=== PATIENT | female | born 1940 | race Caucasian/White ===

== ENCOUNTER 2016-10-29 12:26 | Emergency (ER) | payer OTHER ==
[~2016-10-29] VITALS: Ht 172.7 cm; Wt 98.7 kg
[~2016-10-29 12:26] MED LIST: ASPI-435 PO; DILT120C PO; LEVO100T PO; OXYC-57 PO
[2016-10-29 12:29] VITALS: TEMP 37.1; Ht 172.7 cm; Wt 98.7 kg
[2016-10-29] MEDS ORDERED: SODIUM CHLORIDE 0.9% 1000ML 1,000 ML IV SCH (12:52)
[2016-10-29] MEDS ORDERED: CARV12.52 PO (12:54)
[2016-10-29] MEDS ORDERED: CARV3.122 PO (12:54)
[2016-10-29 13:03] VITALS: O2SAT 96
[2016-10-29 13:04] LABS: BASO % 0.3 %; BASO ABS # 0.02 K/uL (0-0.2); COMPLETE YES; EOS % 3.5 %; IG% 0.3 %; LYMPH % 19.9 %; LYMPH ABS # 1.41 K/uL (1.2-3.4); MEAN CELL VOLUME 87.8 fL (80-100); MEAN CORPUSCULAR HEMOGLOBIN 29.6 pg (25-34); MEAN CORPUSCULAR HGB CONC 33.7 g/dl (32-36); MEAN PLATELET VOLUME 9.8 fL (7.4-10.4); PLATELET COUNT 224 K/uL (130-400); RED BLOOD COUNT 4.67 M/uL (4.2-5.4)
[2016-10-29 13:14] LABS: PARTIAL THROMBOPLASTIN RATIO 1.1; PROTHROMBIN TIME (PATIENT) 10.8 SECONDS (9.0-12.0)
--- NOTE | 2016-10-29 13:17 | EMERGENCY ROOM VISIT NOTE ---
History Report prepared by [place]: Jovita Renae Under the Supervision of: Dr. Enzo Farmer M.D. 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 Per sister, the patient was told by a nurse that she had 2 TIAs last week. She did not follow-up with her PCP after these TIAs. The patient has been doing well. Today she was feeling tired. She was out with her sister and her today and suddenly developed "garbled speech." Sister states that she was not making sense. And the patient states that she could not get her words out right. This did not last very long, but then the patient had some weakness of her right leg. Sister states that this appeared to be worse than usual, but the patient states that it was just her typical leg weakness. The patient denies headache, visual changes, trouble swallowing, chest pain, and shortness of breath. She takes a daily baby aspirin. She has a personal history of a stroke. The patient reports that last week her PCP made changes to her medications. 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 Pt denies visual changes and trouble swallowing. Review of Systems See HPI for pertinent positives & negatives. A total of 10 systems reviewed and were otherwise negative. Past Medical & Surgical Medical Problems: (1) Carotid artery disease (2) CVA (cerebral vascular accident) (3) HTN (hypertension) (4) Hypothyroidism (5) LIPOID METABOL DIS NOS (6) PAD (peripheral artery disease) (7) Positive Lyme disease serology (8) PURE HYPERCHOLESTEROLEM Surgical Problems: (1) S/P tonsillectomy Old medical records were reviewed. Nurse's notes were reviewed and I agree with. Family History FH: CAD (coronary artery disease) FATHER (3 NE's) MOTHER FH: Crohn's disease FATHER Social History Smoking Status: Unknown if Ever Smoked Alcohol Use: none Drug Use: none Marital Status: Housing Status: lives with significant other Occupation Status: retired Current/Historical Medications Scheduled Aspirin (Aspirin 81), 81 MG PO DAILY Carvedilol (Coreg), Unknown Dose PO BID Levothyroxine Sodium (Synthroid), 100 MCG PO DAILY Allergies Coded Allergies: Ceftriaxone (Verified Allergy, Intermediate, RASH, 10/29/16) Cephalexin (Unverified Allergy, Intermediate, RASH, 10/29/16) Physical Exam Vital Signs Date Time Temp Pulse Resp B/P Pulse Ox O2 Delivery O2 Flow Rate FiO2 10/29/16 15:17 82 18 192/132 96 10/29/16 14:30 80 22 186/127 97 Room Air 10/29/16 13:50 82 20 190/105 96 Room Air 10/29/16 13:03 96 Room Air 10/29/16 13:03 78 10/29/16 12:29 37.1 93 18 210/116 95 Room Air Physical Exam General: Well developed well nourished non ill appearing older female in no acute distress, breathing comfortably on room air. Normal speech HEENT: Normal cephalic atraumatic. Pupils are equal round and reactive to light. Sclerae anicteric. Extraocular movements are intact. Oropharynx is pink with moist mucous membranes. No swelling of the mouth lips or tongue. Neck: Supple with a midline trachea. No meningeal signs or stiffness, no JVD or bruits. No Stridor. Chest: Clear to auscultation bilaterally. No wheezes or rhonchi. No increased work of breathing. Heart: regular rate and rhythm. Abdomen: Soft nontender, nondistended without rebound guarding or rigidity. Extremities: No cyanosis clubbing or edema. No calf tenderness or assymetry Spine/Back. Non tender to palpation. No CVA tenderness Skin: Good turgor without rashes. Neurologic exam: Alert and oriented x3. Cranial nerves two through 12 are intact. Motor and sensation are intact and symmetrical throughout. GCS 15. Normal speech, no aphasia, normal finger to nose, no pronator drift. Medical Decision & Procedures ER Provider Diagnostic Interpretation: Radiology results as stated below per my review and radiologist interpretation: HEAD CT NONCONTRAST CT DOSE: 601.98 mGy.cm HISTORY: Stroke symptoms. TECHNIQUE: Multiaxial CT images of the head were performed without the use of intravenous contrast. Automated exposure control was utilized for this study. Comparison: Head CT 03/02/2013. Findings: Small retention cyst within the right maxillary sinus. Stable extra-axial calcification at the right high convexity. This likely represents a meningioma. The ventricles and sulci are within normal limits for age. There is no mass, hematoma, midline shift, or acute infarct. Impression: No acute intracranial abnormality. Electronically signed by: Ed Eastman M.D. 10/29/2016 1:38 PM Dictated Date/Time: 10/29/2016 1:35 PM Laboratory Results 10/29/16 12:45 Red Blood Count 4.67, Mean Corpuscular Volume 87.8, Mean Corpuscular Hemoglobin 29.6, Mean Corpuscular Hemoglobin Concent 33.7, Mean Platelet Volume 9.8, Neutrophils (%) (Auto) 69.0, Lymphocytes (%) (Auto) 19.9, Monocytes (%) (Auto) 7.0, Eosinophils (%) (Auto) 3.5, Basophils (%) (Auto) 0.3, Neutrophils # (Auto) 4.90, Lymphocytes # (Auto) 1.41, Monocytes # (Auto) 0.50, Eosinophils # (Auto) 0.25, Basophils # (Auto) 0.02 10/29/16 12:45 Test 10/29/16 12:45 10/29/16 12:58 10/29/16 12:59 White Blood Count 7.10 K/uL (4.8-10.8) Red Blood Count 4.67 M/uL (4.2-5.4) Hemoglobin 13.8 g/dL (12.0-16.0) Hematocrit 41.0 % (37-47) Mean Corpuscular Volume 87.8 fL (80-100) Mean Corpuscular Hemoglobin 29.6 pg (25-34) Mean Corpuscular Hemoglobin Concent 33.7 g/dl (32-36) Platelet Count 224 K/uL (130-400) Mean Platelet Volume 9.8 fL (7.4-10.4) Neutrophils (%) (Auto) 69.0 % Lymphocytes (%) (Auto) 19.9 % Monocytes (%) (Auto) 7.0 % Eosinophils (%) (Auto) 3.5 % Basophils (%) (Auto) 0.3 % Neutrophils # (Auto) 4.90 K/uL (1.4-6.5) Lymphocytes # (Auto) 1.41 K/uL (1.2-3.4) Monocytes # (Auto) 0.50 K/uL (0.11-0.59) Eosinophils # (Auto) 0.25 K/uL (0-0.5) Basophils # (Auto) 0.02 K/uL (0-0.2) RDW Standard Deviation 42.4 fL (36.4-46.3) RDW Coefficient of Variation 13.3 % (11.5-14.5) Immature Granulocyte % (Auto) 0.3 % Immature Granulocyte # (Auto) 0.02 K/uL (0.00-0.02) Prothrombin Time 10.8 SECONDS (9.0-12.0) Prothromb Time International Ratio 1.0 (0.9-1.1) Activated Partial Thromboplast Time 27.9 SECONDS (21.0-31.0) Partial Thromboplastin Ratio 1.1 Anion Gap 7.0 mmol/L (3-11) Est Creatinine Clear Calc Drug Dose 75.9 ml/min Estimated GFR () 88.5 Estimated GFR (Non- 76.3 BUN/Creatinine Ratio 17.0 (10-20) Calcium Level 8.4 mg/dl (8.5-10.1) Total Creatine Kinase 44 U/L (26-192) Creatine Kinase MB 2.9 ng/ml (0.5-3.6) Creatine Kinase MB Ratio 6.6 (0-3.0) Troponin I < 0.015 ng/ml (0-0.045) Bedside Glucose 134 mg/dl (70-90) Bedside Prothrombin Time INR 1.0 (0.9-1.1) Laboratory studies as stated above per my review. Medications Administered Medications (Trade) Dose Ordered Sig/Ashleigh Route Start Time Stop Time Status Last Admin Dose Admin Sodium Chloride (Nss 1000ml) 1,000 ml @ 50 mls/hr Q20H IV 10/29/16 12:52 10/29/16 15:33 DC 10/29/16 13:48 50 MLS/HR Aspirin (Aspirin Chew) 324 mg NOW STAT PO 10/29/16 14:08 10/29/16 14:09 DC 10/29/16 14:42 324 MG ECG Indication: weakness Rate (beats per minute): 84 Rhythm: normal sinus Findings: no acute ischemic change, other (LVH) Comparison ECG Date: 07/27/2015 Change: no significant change ED Course 1239: Past medical records reviewed. The patient was evaluated in room A11B, and a complete history and physical examination were performed. 1252: NSS 1000 ml @ 50 mls/hr IV 1348: I reassessed the patient at this time. I talked with her at length about her results, and she adamantly refused admission to the hospital. I explained to her that I was concerned that her symptoms of slurred speech could be a mini- stroke and I was concerned that if she went home she could have a significant stroke that could result in disability or . The patient still refuses to stay. I discussed the treatment plan with her family as well. 1408: Aspirin 324 mg PO 1501: The patient's blood pressure was 184/99. She is still refusing to stay and will be discharged home. Medical Decision Differential diagnoses includes TIA, CVA, electrolyte or metabolic abnormality, infection. Medication Reconciliation: I attest that I have personally reviewed the patient' s current medication list. Blood pressure Screening: Patient was found to have an elevated blood pressure and was referred to their primary doctor for recheck and further treatment. This patient comes in complaining of episode of aphasia she's had a couple in the last week. It is since resolved . she has no neurologic deficits at present and has a [place] Coma Score of 15. She's had no trauma her blood pressure was elevated initially she is very anxious. I observed and then it did start to come down and then went up and finally came down with 184/99 prior to discharge, she has not taken her 3:00 meds yet which should help alleviate this. She has no evidence suggest any hypertensive emergency at this point. A CAT scan of her head is unremarkable. EKG does not show any acute ischemic changes or significant arrhythmia. She has no acute electrode or metabolic abnormalities. She has nothing to suggest infection. She has remained stable and asymptomatic I talked to the patient at length with her sister and present. I told her that she needs to be admitted to the hospital as I'm concerned that she has had several TIAs (mini stroke) like symptoms and could have a stroke with permanent disability or . She adamantly declines to be admitted. She acknowledges my concern for her. Additionally, some of this could be related to her blood pressure as well and she may need further adjustment of her medications. Again she declines admission. I had our counseling case manager talked to her and try to get in with her primary doctor tomorrow for recheck. She can do some of the workup as an outpatient. I told her that this is not my first choice and I don't think the best choice but if she refuses admission this is the second choice. She is encouraged to return if she has recurrence of symptoms, numbness weakness, difficulty speaking, chest pain, shortness breath, any new problems concerns. She was happy with the plan and again refused admission. Impression Primary Impression: TIA (transient ischemic attack) Additional Impression: HTN (hypertension) Scribe Attestation The scribe's documentation has been prepared under my direction and personally reviewed by me in its entirety. I confirm that the note above accurately reflects all work, treatment, procedures, and medical decision making performed by me. Time Last Known Well 1200 Stroke t-PA Criteria Reviewed Does NOT meet criteria for t-PA Reason t-PA Not Given Treatment not indicated Strict Exclusion Criteria Complete resolution of symptoms (NI Departure Information Dispostion Home / Self-Care Referrals Shirley Perez D.O. (PCP) Forms HOME CARE DOCUMENTATION FORM, IMPORTANT VISIT INFORMATION Patient Instructions [facility] Additional Instructions Rest Return if: Worsening of symptoms, recurrence of speech problems, numbness or weakness, visual changes, headache, difficulty speaking or swallowing, fever, chest pain, shortness of breath Increase your aspirin to 325 mg once a day enteric coated(adult strength) Check and log your blood pressure frequently. You may need further adjustments in her medications. Problem Qualifiers Primary Impression: TIA (transient ischemic attack) Transient cerebral ischemia type: unspecified Qualified Codes: G45.9 - Transient cerebral ischemic attack, unspecified Additional Impression: HTN (hypertension) Hypertension type: unspecified secondary hypertension Qualified Codes: I15.9 - Secondary hypertension, unspecified
[2016-10-29 13:22] LABS: BLOOD UREA NITROGEN 13 mg/dl (7-18); CALCIUM 8.4 mg/dl (8.5-10.1); CARBON DIOXIDE 26 mmol/L (21-32); CHLORIDE 109 mmol/L (98-107); CREATININE 0.75 mg/dl (0.60-1.20); GLUCOSE 140 mg/dl (70-99); POTASSIUM 4.1 mmol/L (3.5-5.1); SODIUM 142 mmol/L (136-145)
[2016-10-29 13:27] LABS: CKMB/CK RATIO 6.6 (0-3.0)
--- NOTE | 2016-10-29 13:40 | DIAGNOSTIC IMAGING REPORT ---
HEAD CT NONCONTRAST CT DOSE: 601.98 mGy.cm HISTORY: Stroke symptoms. TECHNIQUE: Multiaxial CT images of the head were performed without the use of intravenous contrast. Automated exposure control was utilized for this study. Comparison: Head CT 03/02/2013. Findings: Small retention cyst within the right maxillary sinus. Stable extra-axial calcification at the right high convexity. This likely represents a meningioma. The ventricles and sulci are within normal limits for age. There is no mass, hematoma, midline shift, or acute infarct. Impression: No acute intracranial abnormality. Electronically signed by: Ed Eastman M.D. 10/29/2016 1:38 PM Dictated Date/Time: 10/29/2016 1:35 PM
[2016-10-29] MEDS ORDERED: ASPIRIN 81 MG CHEW PO STA (14:08)
[2016-10-29 15:17] VITALS: BP 192/132; PULSE 82; O2SAT 96
== END 2016-10-29 15:20 | disposition home or self-care (01) ==
LOC: C.EDB 12:29 → C.EDA 15:20
DX: G45.9 Transient cerebral ischemic attack, unspecified (principal); I15.9 Secondary hypertension, unspecified; Z79.82 Long term (current) use of aspirin; Z86.73 Personal history of transient ischemic attack (TIA), and cerebral infarction without residual deficits; E03.9 Hypothyroidism, unspecified; I73.9 Peripheral vascular disease, unspecified; E78.00 Pure hypercholesterolemia, unspecified; Z82.49 Family history of ischemic heart disease and other diseases of the circulatory system

== ENCOUNTER 2017-06-01 15:30 | Emergency (ER) | payer OTHER ==
[~2017-06-01] VITALS: Ht 172.7 cm; Wt 91.0 kg
[~2017-06-01 15:30] MED LIST changes: +CARV3.122 PO; -DILT120C PO; -OXYC-57 PO
[2017-06-01 15:32] VITALS: Ht 172.7 cm; Wt 91.0 kg
[2017-06-01] MEDS ORDERED: ONDANSETRON INJ 2 MG/ML 2 ML VIAL IV STA (15:58)
[2017-06-01] MEDS ORDERED: MoRPHine SULFATE 4 MG/ML 1 ML CARP\\VIAL IV PRN (16:00)
--- NOTE | 2017-06-01 16:04 | EMERGENCY ROOM VISIT NOTE ---
History Report prepared by [place]inna: Corwin Downing Under the Supervision of: Dr. Harry Brandon M.D. First contact with patient: 15:53 Chief Complaint: BACK PAIN Stated Complaint: BACK PAIN - RIGHT SIDE History of Present Illness The patient is a 76 year old female who presents to the Emergency Room with complaints of worsening right lower back pain that began yesterday. She rates her pain as an 8/10 in severity. The patient states that the pain is worsened with walking and relieved with rest. The patient states that she noticed the pain worsened today, which caused her to report to the ED. She reports that she took her arthritis medication, but denies any relief of symptoms. The patient states that she has an extensive history of back pain and had to wear a brace as a child. 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 The patient denies fall, injury, urinary symptoms, nausea, vomiting, fever, shortness of breath, cough, rash, and a history of kidney stones. Source of History: patient Onset: yesterday Position: back (lower) Symptom Intensity: 8/10 Timing: worsening Modifying Factors (Worsening): other (walking) Modifying Factors (Relieving): rest Associated Symptoms: No fevers, No cough, No SOB, No nausea, No vomiting, No urinary symptoms, No rash Review of Systems See HPI for pertinent positives & negatives. A total of 10 systems reviewed and were otherwise negative. Past Medical & Surgical Medical Problems: (1) Carotid artery disease (2) CVA (cerebral vascular accident) (3) HTN (hypertension) (4) Hypothyroidism (5) LIPOID METABOL DIS NOS (6) PAD (peripheral artery disease) (7) Positive Lyme disease serology (8) PURE HYPERCHOLESTEROLEM Surgical Problems: (1) S/P tonsillectomy Family History FH: CAD (coronary artery disease) FATHER (3 OH's) MOTHER FH: Crohn's disease FATHER Social History Smoking Status: Never Smoker Alcohol Use: none Drug Use: none Marital Status: Housing Status: lives with significant other Occupation Status: retired Current/Historical Medications Scheduled Aspirin (Aspirin), 325 MG PO DAILY Carvedilol (Coreg), 6.25 MG PO BID Levothyroxine Sodium (Synthroid), 100 MCG PO DAILY Allergies Coded Allergies: Ceftriaxone (Verified Allergy, Intermediate, RASH, 10/29/16) Cephalexin (Unverified Allergy, Intermediate, RASH, 10/29/16) Physical Exam Vital Signs Date Time Temp Pulse Resp B/P (MAP) Pulse Ox O2 Delivery O2 Flow Rate FiO2 06/01/17 20:13 36.8 81 20 163/109 98 06/01/17 19:28 163/109 06/01/17 18:47 172/101 06/01/17 17:45 81 20 220/114 98 Room Air 06/01/17 15:32 36.8 91 20 205/130 97 Room Air Physical Exam GENERAL: Patient is in mild acute distress secondary to pain. HEENT: No acute trauma, normocephalic atraumatic, mucous membranes moist, no nasal congestion, no scleral icterus. NECK: No stridor, no adenopathy, no meningismus, trachea is midline. LUNGS: Clear to auscultation bilaterally, no wheeze, no rhonchi, breath sounds equal. HEART: 2/6 systolic murmur, regular rate and rhythm.. ABDOMEN: Soft, nontender, bowel sounds positive, no hernias, no peritonitis. BACK: No focal areas of discomfort by palpation. No rash. EXTREMITIES: No cyanosis or edema, full range of motion of all the joints without pain or difficulty, no signs for acute trauma. NEUROLOGIC: Oriented x 3, no acute motor or sensory deficits, no focal weakness. SKIN: No rash, no jaundice, no diaphoresis. Medical Decision & Procedures ER Provider Diagnostic Interpretation: Radiology results as stated below per my review and radiologist interpretation: ABD/PELVIS WITHOUT FOR STONE CLINICAL HISTORY: 76 years-old Female presenting with EVALUATE FLANK PAIN/HEMATURIA. TECHNIQUE: Multidetector CT of the abdomen and pelvis was performed without the use of intravenous contrast. IV contrast: None. A dose lowering technique was used consistent with the principles of ALARA (as low as reasonably achievable). COMPARISON: None. CT DOSE (mGy.cm): The estimated cumulative dose is 1527.71 mGy.cm. FINDINGS: Joint Cutter Machine topogram: Unremarkable. Lung bases: Lungs and pleural spaces clear. Multichamber enlargement of the heart. Aortic valve and mitral annular calcification. No pericardial or pleural effusion. Liver: Normal morphology. Normal density. Biliary: No gross biliary ductal dilatation allowing for noncontrast technique. Gallbladder decompressed. Pancreas: Mild parenchymal atrophy. Spleen: Normal noncontrast appearance. Adrenal glands: Normal noncontrast appearance. Kidneys and ureters: Hypodensity in the left kidney, indeterminate but possibly cyst. No nephrolithiasis. No hydronephrosis. Normal ureters. Bladder: Incompletely evaluated secondary to underdistention. Pelvic organs: Normal noncontrast appearance. Bowel: Limited diverticulosis of the sigmoid colon. Mild stool burden. The appendix is normal. No bowel obstruction. Peritoneal cavity: No free fluid or intraperitoneal gas. Lymph nodes: Few prominent lymph nodes noted in the donnell hepatis, possibly reactive. No gross lymphadenopathy allowing for noncontrast technique. Vasculature: Atherosclerosis of the normal caliber abdominal aorta. Abdominal wall: Small fat-containing umbilical hernia. Musculoskeletal: Degenerative changes of the spine. IMPRESSION: 1. No nephrolithiasis or hydronephrosis. No acute intra-abdominal pathology within limitations of noncontrast technique. 2. Limited diverticulosis of the sigmoid colon. Electronically signed by: Renaldo Mckeon M.D. 06/01/2017 5:09 PM Dictated Date/Time: 06/01/2017 5:04 PM R PELVIS/UNILATERAL HIP 2-3VIEWS CLINICAL HISTORY: 76 years-old Female presenting with RT PELVIC AND HIP PAIN. TECHNIQUE: Single frontal view of the pelvis and frontal and frog-leg lateral views of the right hip were obtained. COMPARISON: CT performed earlier the same day. FINDINGS: Osteopenia. Bony pelvis intact. Pubic symphysis, sacroiliac joints, hip joints congruent. No femoral neck fracture. Specifically the right hip joint is unremarkable. Degenerative changes noted the lower lumbar spine. Atherosclerosis. IMPRESSION: No acute osseous injury of the pelvis or right hip. Electronically signed by: Renaldo Mckeon M.D. 06/01/2017 5:38 PM Dictated Date/Time: 06/01/2017 5:36 PM Laboratory Results 06/01/17 16:26 Red Blood Count 5.02, Mean Corpuscular Volume 89.2, Mean Corpuscular Hemoglobin 30.3, Mean Corpuscular Hemoglobin Concent 33.9, Mean Platelet Volume 10.0, Neutrophils (%) (Auto) 71.9, Lymphocytes (%) (Auto) 17.6, Monocytes (%) (Auto) 6.9, Eosinophils (%) (Auto) 3.0, Basophils (%) (Auto) 0.3, Neutrophils # (Auto) 4.82, Lymphocytes # (Auto) 1.18, Monocytes # (Auto) 0.46, Eosinophils # (Auto) 0.20, Basophils # (Auto) 0.02 06/01/17 16:26 Test 06/01/17 16:26 06/01/17 17:27 White Blood Count 6.70 K/uL (4.8-10.8) Red Blood Count 5.02 M/uL (4.2-5.4) Hemoglobin 15.2 g/dL (12.0-16.0) Hematocrit 44.8 % (37-47) Mean Corpuscular Volume 89.2 fL (80-100) Mean Corpuscular Hemoglobin 30.3 pg (25-34) Mean Corpuscular Hemoglobin Concent 33.9 g/dl (32-36) Platelet Count 227 K/uL (130-400) Mean Platelet Volume 10.0 fL (7.4-10.4) Neutrophils (%) (Auto) 71.9 % Lymphocytes (%) (Auto) 17.6 % Monocytes (%) (Auto) 6.9 % Eosinophils (%) (Auto) 3.0 % Basophils (%) (Auto) 0.3 % Neutrophils # (Auto) 4.82 K/uL (1.4-6.5) Lymphocytes # (Auto) 1.18 K/uL (1.2-3.4) Monocytes # (Auto) 0.46 K/uL (0.11-0.59) Eosinophils # (Auto) 0.20 K/uL (0-0.5) Basophils # (Auto) 0.02 K/uL (0-0.2) RDW Standard Deviation 45.6 fL (36.4-46.3) RDW Coefficient of Variation 14.0 % (11.5-14.5) Immature Granulocyte % (Auto) 0.3 % Immature Granulocyte # (Auto) 0.02 K/uL (0.00-0.02) Anion Gap 8.0 mmol/L (3-11) Est Creatinine Clear Calc Drug Dose 53.6 ml/min Estimated GFR () 61.0 Estimated GFR (Non- 52.6 BUN/Creatinine Ratio 30.9 (10-20) Calcium Level 8.7 mg/dl (8.5-10.1) Total Bilirubin 0.3 mg/dl (0.2-1) Aspartate Amino Transf (AST/SGOT) 15 U/L (15-37) Alanine Aminotransferase (ALT/SGPT) 26 U/L (12-78) Alkaline Phosphatase 110 U/L (45-117) Total Protein 7.8 gm/dl (6.4-8.2) Albumin 3.6 gm/dl (3.4-5.0) Globulin 4.2 gm/dl (2.5-4.0) Albumin/Globulin Ratio 0.9 (0.9-2) Lipase 158 U/L (73-393) Urine Color YELLOW Urine Appearance CLEAR (CLEAR) Urine pH 5.0 (4.5-7.5) Urine Specific [place] 1.034 (1.000-1.030) Urine Protein TRACE (NEG) Urine Glucose (UA) NEG (NEG) Urine Ketones NEG (NEG) Urine Occult Blood NEG (NEG) Urine Nitrite NEG (NEG) Urine Bilirubin NEG (NEG) Urine Urobilinogen NEG (NEG) Urine Leukocyte Esterase NEG (NEG) Urine WBC (Auto) 1-5 /hpf (0-5) Urine RBC (Auto) 0-4 /hpf (0-4) Urine Hyaline Casts (Auto) 1-5 /lpf (0-5) Urine Epithelial Cells (Auto) >30 /lpf (0-5) Urine Bacteria (Auto) NEG (NEG) Laboratory results reviewed by me. Medications Administered Medications (Trade) Dose Ordered Sig/Ashleihg Route Start Time Stop Time Status Last Admin Dose Admin Ondansetron HCl (Zofran Inj) 4 mg NOW STAT IV 06/01/17 15:58 06/01/17 16:07 DC 06/01/17 16:32 4 MG Labetalol HCl (Normodyne IV) 20 mg NOW STAT IV 06/01/17 17:50 06/01/17 17:51 DC 06/01/17 17:50 20 MG Ketorolac Tromethamine (Toradol Inj) 30 mg NOW STAT IV 06/01/17 17:50 06/01/17 17:51 DC 06/01/17 18:09 30 MG Carvedilol (Coreg Tab) 6.25 mg NOW STAT PO 06/01/17 19:30 06/01/17 19:31 DC 06/01/17 19:40 6.25 MG Oxycodone HCl (Roxicodone Immediate Rel 5MG Home Pack) 1 homepack UD ONCE PO 06/01/17 20:15 06/01/17 20:16 DC 06/01/17 20:06 1 HOMEPACK ED Course 155: The patient was evaluated in room B10. A complete history and physical exam was performed. 1557: Ordered Zofran Injection 4 mg IV. 1749: Ordered Toradol Injection 30 mg IV, Labetalol HCl 20 mg IV. 1814: I reevaluated the patient and he is resting comfortably. We are waiting for his blood pressure to come down. 1929: Ordered Coreg Tab 6.25 mg PO. 1957: Reevaluated the patient. Her blood pressure is slightly decreasing. She reports that she would like to go home. Discussed results and discharge instructions: She verbalized understanding and agreement. The patient is ready for discharge. 2014: Ordered Oxycodone HCl 1 homepack PO. Medical Decision The patient is a 76 year old female who presents to the Emergency Room with complaints of worsening right lower back pain that began yesterday. Differential diagnoses considered include Shingles, renal colic, UTI, nerve impingement, sciatica, hernia, triple A, arthritis, or fracture. There is no leukocytosis or worrisome anemia. No renal failure, no significant electrolyte abnormality or hepatitis. There is no pancreatitis. Urinalysis does not show infection or significant hematuria. Abdominal and pelvis CT shows no acute surgical finding. There was no hydronephrosis. No AAA. Pelvis and right hip film show no pelvic fracture or hip fracture. There was no significant arthritis. The patient presents with right flank and hip/pelvic pain. On exam, I did not see any rash although shingles is still a consideration. Her blood pressure was high here but she thought this might be from the pain or the worry of just being here. The patient was given IV Toradol for pain, she received IV labetalol and then oral Coreg for her blood pressure. She received IV Zofran. The patient was adamant that she felt she could leave. Her blood pressure had come down some but was still high. She did not want to stay. She states that she thinks the blood pressure is high from just being in the ER. The patient will keep a watch on her blood pressure. I have recommended warm compresses and massage for the soreness in the back and hip. The patient will see her doctor in the outpatient office. She will watch closely for any shingles rash. If worsening, she can return. At this point, the cause for the pain is unclear. Medication Reconcilliation Current Medication List: was personally reviewed by me Blood Pressure Screening Patient's blood pressure: Elevated blood pressure Blood pressure disposition: Referred to PCP Impression Primary Impression: Right flank pain Additional Impressions: Right hip pain HTN (hypertension) Scribe Attestation The scribe's documentation has been prepared under my direction and personally reviewed by me in its entirety. I confirm that the note above accurately reflects all work, treatment, procedures, and medical decision making performed by me. Departure Information Dispostion Home / Self-Care Referrals Shirley Perez D.O. (PCP) Forms HOME CARE DOCUMENTATION FORM, IMPORTANT VISIT INFORMATION Patient Instructions My [facility] Additional Instructions see nilson basilio saturday warm compresses to the sore area massage may be helpful tylenol for pain may use oxy ir 1 tab every 4 hours as needed for severe pain watch for a rash as we discussed return for fever or worsening symptoms keep a watch on your blood pressure--it was high here Problem Qualifiers
[2017-06-01] MEDS ORDERED: ASPECOTC PO (16:11)
[2017-06-01] MEDS ORDERED: CARV6.252 PO (16:18)
[2017-06-01 16:39] LABS: BASO % 0.3 %; BASO ABS # 0.02 K/uL (0-0.2); HEMATOCRIT 44.8 % (37-47); HEMOGLOBIN 15.2 g/dL (12.0-16.0); IG# 0.02 K/uL (0.00-0.02); LYMPH % 17.6 %; LYMPH ABS # 1.18 K/uL (1.2-3.4); MEAN CELL VOLUME 89.2 fL (80-100); MEAN CORPUSCULAR HEMOGLOBIN 30.3 pg (25-34); MEAN CORPUSCULAR HGB CONC 33.9 g/dl (32-36); MONO % 6.9 %; MONO ABS # 0.46 K/uL (0.11-0.59); NEUT % 71.9 %; NEUT ABS # 4.82 K/uL (1.4-6.5); PLATELET COUNT 227 K/uL (130-400); RED CELL DISTRIBUTION WIDTH SD 45.6 fL (36.4-46.3)
--- NOTE | 2017-06-01 17:10 | DIAGNOSTIC IMAGING REPORT ---
ABD/PELVIS WITHOUT FOR STONE CLINICAL HISTORY: 76 years-old Female presenting with EVALUATE FLANK PAIN/HEMATURIA. TECHNIQUE: Multidetector CT of the abdomen and pelvis was performed without the use of intravenous contrast. IV contrast: None. A dose lowering technique was used consistent with the principles of ALARA (as low as reasonably achievable). COMPARISON: None. CT DOSE (mGy.cm): The estimated cumulative dose is 1527.71 mGy.cm. FINDINGS: Die Finisher Forging topogram: Unremarkable. Lung bases: Lungs and pleural spaces clear. Multichamber enlargement of the heart. Aortic valve and mitral annular calcification. No pericardial or pleural effusion. Liver: Normal morphology. Normal density. Biliary: No gross biliary ductal dilatation allowing for noncontrast technique. Gallbladder decompressed. Pancreas: Mild parenchymal atrophy. Spleen: Normal noncontrast appearance. Adrenal glands: Normal noncontrast appearance. Kidneys and ureters: Hypodensity in the left kidney, indeterminate but possibly cyst. No nephrolithiasis. No hydronephrosis. Normal ureters. Bladder: Incompletely evaluated secondary to underdistention. Pelvic organs: Normal noncontrast appearance. Bowel: Limited diverticulosis of the sigmoid colon. Mild stool burden. The appendix is normal. No bowel obstruction. Peritoneal cavity: No free fluid or intraperitoneal gas. Lymph nodes: Few prominent lymph nodes noted in the donnell hepatis, possibly reactive. No gross lymphadenopathy allowing for noncontrast technique. Vasculature: Atherosclerosis of the normal caliber abdominal aorta. Abdominal wall: Small fat-containing umbilical hernia. Musculoskeletal: Degenerative changes of the spine. IMPRESSION: 1. No nephrolithiasis or hydronephrosis. No acute intra-abdominal pathology within limitations of noncontrast technique. 2. Limited diverticulosis of the sigmoid colon. Electronically signed by: Renaldo Mckeon M.D. 06/01/2017 5:09 PM Dictated Date/Time: 06/01/2017 5:04 PM
[2017-06-01 17:33] LABS: ALBUMIN 3.6 gm/dl (3.4-5.0); CALCIUM 8.7 mg/dl (8.5-10.1); CREATININE 1.02 mg/dl (0.60-1.20); POTASSIUM 3.8 mmol/L (3.5-5.1); TOTAL PROTEIN 7.8 gm/dl (6.4-8.2)
--- NOTE | 2017-06-01 17:39 | DIAGNOSTIC IMAGING REPORT ---
R PELVIS/UNILATERAL HIP 2-3VIEWS CLINICAL HISTORY: 76 years-old Female presenting with RT PELVIC AND HIP PAIN. TECHNIQUE: Single frontal view of the pelvis and frontal and frog-leg lateral views of the right hip were obtained. COMPARISON: CT performed earlier the same day. FINDINGS: Osteopenia. Bony pelvis intact. Pubic symphysis, sacroiliac joints, hip joints congruent. No femoral neck fracture. Specifically the right hip joint is unremarkable. Degenerative changes noted the lower lumbar spine. Atherosclerosis. IMPRESSION: No acute osseous injury of the pelvis or right hip. Electronically signed by: Renaldo Mckeon M.D. 06/01/2017 5:38 PM Dictated Date/Time: 06/01/2017 5:36 PM
[2017-06-01] MEDS ORDERED: LABETALOL HCL IV 5 MG/ML 20ML IV STA (17:50)
[2017-06-01] MEDS ORDERED: KETOROLAC TROMETHAMINE 30 MG/ML VIAL IV STA (17:50)
[2017-06-01] MEDS ORDERED: CARVEDILOL 6.25 MG TAB PO STA (19:30)
[2017-06-01 20:13] VITALS: BP 163/109; PULSE 81; TEMP 36.8; O2SAT 98
[2017-06-01] MEDS ORDERED: OXYCODONE IR HOME PACK PO ONE (20:15)
== END 2017-06-01 20:14 | disposition home or self-care (01) ==
LOC: C.EDB 15:31
DX: R10.9 Unspecified abdominal pain (principal); M25.551 Pain in right hip; I10 Essential (primary) hypertension; I25.10 Atherosclerotic heart disease of native coronary artery without angina pectoris; I63.9 Cerebral infarction, unspecified; E03.9 Hypothyroidism, unspecified; I73.9 Peripheral vascular disease, unspecified; E78.00 Pure hypercholesterolemia, unspecified; Z82.49 Family history of ischemic heart disease and other diseases of the circulatory system; Z79.82 Long term (current) use of aspirin

== ENCOUNTER → 2017-07-13 | Outpatient (CLI) | payer OTHER ==
[~2017-07-13] MED LIST changes: -ASPI-435 PO; +ASPI325T45 PO; -CARV3.122 PO; +CARV6.252 PO
--- NOTE | 2017-07-13 11:44 | DIAGNOSTIC IMAGING REPORT ---
VENOUS DOPP LOWER EXT UNILAT CLINICAL HISTORY: 77 years-old Female presenting with LEFT LEG SWELLING. TECHNIQUE: Real-time grayscale and color and spectral Doppler ultrasound imaging of the veins of the left lower extremity was performed. Compression and augmentation were also utilized. COMPARISON: 08/26/2014. FINDINGS: Left: Common femoral vein: Patent. Greater saphenous vein: Patent. Deep femoral vein: Patent. Femoral vein: Patent. Popliteal vein: Patent. Calf veins: Patent. Other: None. IMPRESSION: No evidence of deep venous thrombosis. Electronically signed by: Renaldo Mckeon M.D. 07/13/2017 11:43 AM Dictated Date/Time: 07/13/2017 11:42 AM
== END | disposition home or self-care (01) ==
LOC: C.ULTR 11:16
PROVIDERS: ATTEND Internal Medicine
DX: M79.89 Other specified soft tissue disorders (principal)

== ENCOUNTER 2019-12-17 11:45 | Inpatient (IN) ==
--- NOTE | 2019-12-17 12:14 | Emergency Department Note ---
Impression & Plan Hypertensive emergency, Transient cerebral ischemia, High serum chloride ED Provider Note NAME: KELLY CLINE AGE: 79 SEX: F : 1940 ARRIVES VIA: Walk-In INFORMANT: Patient ED PROVIDER(S): Alban Chirinos DO CHIEF COMPLAINT: Slurred speech, weakness HPI: Patient is an 79-year-old female who presents the ER for slurred speech. She notes that she went to bed last night around 930. She has been having this off and on for the past 3 to 4 days. Generally worse in the afternoon. She notes it normally comes and goes. Started last night and continued through when she went to bed and when she woke up this morning she notes it was worse. She was having trouble getting words out. She admits to feeling foggy as well. No headache change in vision chest pain shortness of breath nausea vomiting or diarrhea. She notes she has trouble getting up and down trouble walking. Her right lower extremity does not feel right either from when she got up this morning. She admits to a previous stroke before x1. ROS: See above HPI for pertinent positives & negatives. A total of 10 systems reviewed and were otherwise negative. PAST MEDICAL HISTORY:See Below PAST SURGICAL HISTORY:See Below FAMILY HISTORY:See Below SOCIAL HISTORY:See Below HOME MEDICATIONS:See Below ALLERGIES:See Below VITALS:See Below PHYSICAL EXAMINATION: GENERAL: Sitting up in bed, alert, well appearing, well nourished, no distress, non-toxic EYE EXAM: normal conjunctiva. PERRL and EOM's intact. OROPHARYNX: no exudate, no erythema, lips, buccal mucosa, and tongue normal and mucous membranes are moist NECK: supple, no nuchal rigidity, no adenopathy, non-tender LUNGS: Clear to auscultation. Normal chest wall mechanics HEART: no murmurs, S1 normal and S2 normal ABDOMEN: abdomen soft, non-tender, normo-active bowel sounds, no masses, no rebound or guarding. BACK: Back is symmetrical on inspection and there is no deformity, no midline tenderness, no CVA tenderness. SKIN: no rashes and no bruising UPPER EXTREMITIES: upper extremities are grossly normal. LOWER EXTREMITIES: No pitting edema. NEURO EXAM: Normal sensorium, cranial nerves II-XII intact, normal speech, no weakness of arms, no weakness of legs. No drift. Finger to nose intact. Gross sensation intact. MEDICAL DECISION MAKING: Patient is an 79-year-old female with a past medical history of TIA the presents the ER for 3 days worth of off and on slurred speech. She went to bed last night with slurred speech and when she woke up it was there and got worse. She had trouble moving her right lower extremity. Upon presentation she is found to be significantly hypertensive with systolic blood pressures in the 200s. IV was established blood work is obtained. Labs show no significant leukocytosis or anemia. INR was unremarkable. BMP with a slightly elevated chloride. Glucose was slightly elevated. LFTs bilirubin was negative. Troponin was negative. CT angios of the head and neck show no focal occlusion or embolic disease. Patient was significantly improved on my initial exam. Patient was given IV fluids. She was given IV hydralazine after discussion with neurology. Attempted to bring down the blood pressures as I question if this was hypertensive emergency versus TIA. Patient was updated initially want to go home but was eventually agreeable to staying in the hospital. Stroke alert was not called has symptoms have been present since last night before going to bed. Triage Nursing notes reviewed. Prior medical records reviewed Vital Signs: reviewed and remarkable for hypertensive Differential diagnosis: Differential Diagnosis includes but is not limited to ischemic Stroke, hemorrhagic stroke, bells palsy, mass, neoplasm, migraine headache, seizure, subarachnoid hemorrhage, TIA, and transient global amnesia. ER treatment provided: See below Diagnostics interpreted by me: ECG: Sinus rhythm rate of 74 Left axis DWI in the high lateral leads No PVCs LVH by voltage criteria Cardiac Monitoring: An order was placed for continuous cardiac monitoring. The monitor shows a rate of 75 with sinus rhythm. Laboratory studies: As stated above and show below. Imaging studies: See below Consultation(s): Discussed with the hospitalist for further evaluation. ED COURSE: Procedures: none Critical Care: I have personally spent 31 minutes of critical care time in the direct management of this patient. This includes bedside care, interpretation of diagnostic studies, and testing, discussion with consultants, patient, and family members, and other required patient management activities. This 31 minutes is in excess of all separately billable procedures. Past Med/Surg History Medical History (Updated 12/17/19 @ 18:21 by Alban Chirinos DO) Carotid artery disease (Chronic) CVA (cerebral vascular accident) (Chronic) Diabetes (Chronic) Hyperlipidemia (Chronic) Hypertension (Chronic) Hypothyroidism (Chronic) Left ventricular hypertrophy (Chronic) Peripheral vascular disease (Chronic) Surgical History (Updated 12/17/19 @ 15:11 by Fatimah Reveles PA-C) History of tonsillectomy Family History (Updated 12/17/19 @ 15:11 by Fatimah Reveles PA-C) Father Myocardial infarction Mother Colorectal cancer Social History (Updated 12/17/19 @ 15:12 by Fatimah Reveles PA-C) Preferred Language: Macedonian Communication Ability: Effective [employer] Required: No Beliefs That Will Affect Care: None Current Living Situation: Spouse current occupational status: retired Other Information That Helps Us Care for You: No Feels Safe at Home: Yes Safety Concerns: Feels Safe At This Time Smoking Status: Never smoker Hx Alcohol Use: No Hx Substance Use: No Allergies Allergies Allergy/AdvReac Type Severity Reaction Status Date / Time ceftriaxone Allergy Intermediate RASH Verified 12/17/19 12:40 cephalexin Allergy Intermediate RASH Unverified 12/17/19 12:40 Sulfa (Sulfonamide Allergy Unknown Unknown Unverified 12/17/19 12:40 Antibiotics) Home Meds Home Medications Medication Instructions Recorded Confirmed aspirin 325 mg tablet 325 mg PO QDL 03/10/18 12/17/19 carvedilol 6.25 mg tablet 6.25 mg PO QAM 03/10/18 12/17/19 metformin 500 mg tablet 500 mg PO QDL tab 03/10/18 12/17/19 levothyroxine 137 mcg PO DAILY 12/17/19 12/17/19 Results & Data (ED) Vital Signs Vital Signs - 24 hr 12/17/19 11:48 12/17/19 12:04 12/17/19 12:10 Temperature 36.4 C L Temperature Source Oral Pulse Rate 71 69 Pulse Rate from SpO2 Sensor 70 Pulse Rhythm Regular Pulse Strength Normal Respiratory Rate 20 21 Respiratory Effort / Characteristics Non-Labored Spontaneous Respiratory Depth Normal Respiratory Pattern Regular Blood Pressure 225/106 H 244/124 H Blood Pressure Mean 145 163 Blood Pressure Position Sitting Pulse Oximetry 97 98 97 Oxygen Delivery Method Room Air Room Air Room Air Sepsis Recent Fever Within 48 Hours No Sepsis New/Unexplained Change in Mental Status No Sepsis Action Taken by Nursing No Action Required 12/17/19 12:34 12/17/19 12:46 12/17/19 13:01 Temperature Temperature Source Pulse Rate 65 72 71 Pulse Rate from SpO2 Sensor 69 73 70 Pulse Rhythm Pulse Strength Respiratory Rate 19 19 18 Respiratory Effort / Characteristics Respiratory Depth Respiratory Pattern Blood Pressure 228/110 H 227/94 H 229/80 H Blood Pressure Mean 148 147 133 Blood Pressure Position Pulse Oximetry 97 96 96 Oxygen Delivery Method Room Air Room Air Room Air Sepsis Recent Fever Within 48 Hours Sepsis New/Unexplained Change in Mental Status Sepsis Action Taken by Nursing 12/17/19 13:16 12/17/19 13:30 12/17/19 13:46 Temperature Temperature Source Pulse Rate 88 72 80 Pulse Rate from SpO2 Sensor 81 74 78 Pulse Rhythm Pulse Strength Respiratory Rate 21 18 18 Respiratory Effort / Characteristics Respiratory Depth Respiratory Pattern Blood Pressure 250/99 H Blood Pressure Mean 130 Blood Pressure Position Pulse Oximetry 96 97 98 Oxygen Delivery Method Room Air Room Air Room Air Sepsis Recent Fever Within 48 Hours Sepsis New/Unexplained Change in Mental Status Sepsis Action Taken by Nursing 12/17/19 14:01 Temperature Temperature Source Pulse Rate 72 Pulse Rate from SpO2 Sensor 71 Pulse Rhythm Pulse Strength Respiratory Rate 24 Respiratory Effort / Characteristics Respiratory Depth Respiratory Pattern Blood Pressure 246/111 H Blood Pressure Mean 153 Blood Pressure Position Pulse Oximetry 97 Oxygen Delivery Method Room Air Sepsis Recent Fever Within 48 Hours Sepsis New/Unexplained Change in Mental Status Sepsis Action Taken by Nursing Laboratory Data Result diagrams: 12/17/19 12:02 12/17/19 12:02 Lab Results 12/17/19 12/17/19 12/17/19 Range/Units 12:00 12:02 12:02 WBC 8.33 (4.8-10.8) K/uL RBC 5.47 H (4.2-5.4) M/uL Hgb 16.2 H (12.0-16.0) g/dL Hct 47.2 H (37-47) % MCV 86.3 (80-100) fL MCH 29.6 (25-34) pg MCHC 34.3 (32-36) g/dL RDW Std Deviation 42.0 (36.4-46.3) fL RDW Coeff of Eliza 13.2 (11.5-14.5) % Plt Count 245 (130-400) K/uL MPV 10.4 (7.4-10.4) fL Immature Gran % (Auto) 0.2 % Neut % (Auto) 71.4 % Lymph % (Auto) 17.9 % Cedar % (Auto) 8.0 % Eos % (Auto) 2.4 % Baso % (Auto) 0.1 % Neut # (Auto) 5.94 (1.4-6.5) K/uL Lymph # (Auto) 1.49 (1.2-3.4) K/uL Cedar # (Auto) 0.67 H (0.11-0.59) K/uL Eos # (Auto) 0.20 (0-0.5) K/uL Baso # (Auto) 0.01 (0-0.2) K/uL Immature Gran # (Auto) 0.02 (0.00-0.02) K/uL PT (9.0-12.0) Seconds INR (0.9-1.1) APTT (21.0-31.0) Seconds PTT Ratio Sodium (136-145) mmol/L Potassium (3.5-5.1) mmol/L Chloride (98-107) mmol/L Carbon Dioxide (21-32) mmol/L Anion Gap (3-11) BUN (7-18) mg/dl Creatinine (0.6-1.2) mg/dl Est Cr Clr Drug Dosing ml/min Est GFR ( Amer) Est GFR (Non-Af Amer) BUN/Creatinine Ratio (10-20) Glucose (70-99) mg/dl POC Glucose 108 H (70-99) mg/dl Calcium (8.5-10.1) mg/dl Magnesium (1.8-2.4) mg/dl Total Bilirubin (0.2-1) mg/dl AST (15-37) U/L ALT (12-78) U/L Alkaline Phosphatase (45-117) U/L Troponin I (0-0.045) ng/ml Total Protein (6.4-8.2) gm/dl Albumin (3.4-5.0) gm/dl Globulin (2.5-4.0) gm/dl Albumin/Globulin Ratio (0.9-2) Blood Type A Positive Antibody Screen NEGATIVE 12/17/19 12/17/19 Range/Units 12:02 12:02 WBC (4.8-10.8) K/uL RBC (4.2-5.4) M/uL Hgb (12.0-16.0) g/dL Hct (37-47) % MCV (80-100) fL MCH (25-34) pg MCHC (32-36) g/dL RDW Std Deviation (36.4-46.3) fL RDW Coeff of Eliza (11.5-14.5) % Plt Count (130-400) K/uL MPV (7.4-10.4) fL Immature Gran % (Auto) % Neut % (Auto) % Lymph % (Auto) % Cedar % (Auto) % Eos % (Auto) % Baso % (Auto) % Neut # (Auto) (1.4-6.5) K/uL Lymph # (Auto) (1.2-3.4) K/uL Cedar # (Auto) (0.11-0.59) K/uL Eos # (Auto) (0-0.5) K/uL Baso # (Auto) (0-0.2) K/uL Immature Gran # (Auto) (0.00-0.02) K/uL PT 11.0 (9.0-12.0) Seconds INR 1.0 (0.9-1.1) APTT 29.1 (21.0-31.0) Seconds PTT Ratio 1.0 Sodium 140 (136-145) mmol/L Potassium 4.2 (3.5-5.1) mmol/L Chloride 110 H (98-107) mmol/L Carbon Dioxide 24 (21-32) mmol/L Anion Gap 6.0 (3-11) BUN 21 H (7-18) mg/dl Creatinine 1.08 (0.6-1.2) mg/dl Est Cr Clr Drug Dosing 48.8 ml/min Est GFR ( Amer) 55.8 Est GFR (Non-Af Amer) 48.1 BUN/Creatinine Ratio 19.4 (10-20) Glucose 115 H (70-99) mg/dl POC Glucose (70-99) mg/dl Calcium 8.9 (8.5-10.1) mg/dl Magnesium 2.4 (1.8-2.4) mg/dl Total Bilirubin 0.4 (0.2-1) mg/dl AST 14 L (15-37) U/L ALT 19 (12-78) U/L Alkaline Phosphatase 121 H (45-117) U/L Troponin I < 0.015 (0-0.045) ng/ml Total Protein 7.8 (6.4-8.2) gm/dl Albumin 3.5 (3.4-5.0) gm/dl Globulin 4.3 H (2.5-4.0) gm/dl Albumin/Globulin Ratio 0.8 L (0.9-2) Blood Type Antibody Screen Administered Medications Aspirin (Aspirin) 300 mg SD DAILY MEHRAN Stop: 01/16/20 14:59 Last Admin: 12/17/19 15:28 Dose: 300 mg Documented by: [id number] Insulin Aspart (Novolog Flexpen) 0 units SC ACHS MEHRAN Stop: 01/16/20 16:30 Last Admin: 12/17/19 17:20 Dose: Not Given Documented by: [id number] Cosigned by: [id number] Labetalol HCl (Normodyne) 10 mg IV Q6H PRN PRN Reason: hypertension Stop: 01/16/20 16:30 Last Admin: 12/17/19 18:04 Dose: 10 mg Documented by: [id number] Cosigned by: [id number] Discontinued Medications Hydralazine HCl (Hydralazine Hcl) 10 mg IV NOW STA Stop: 12/17/19 13:49 Last Admin: 12/17/19 13:57 Dose: 10 mg Documented by: [id number] Hydralazine HCl (Hydralazine Hcl) 10 mg IV NOW STA Stop: 12/17/19 14:10 Last Admin: 12/17/19 14:37 Dose: Not Given Documented by: [id number] Ioversol (Optiray 320 125ml) 119 ml IV ONCE PRN PRN Reason: Interaction Checking Stop: 12/21/19 12:23 Last Admin: 12/17/19 12:24 Dose: 119 ml Documented by: [id number] Labetalol HCl (Normodyne) 10 mg IV NOW STA Stop: 12/17/19 14:54 Last Admin: 12/17/19 17:25 Dose: Not Given Documented by: [id number] Labetalol HCl (Normodyne) 20 mg IV NOW STA Stop: 12/17/19 14:57 Last Admin: 12/17/19 15:58 Dose: 20 mg Documented by: [id number] Cosigned by: [id number] Discharge Plan Visit Data *Final* Discharge Date/Time: 12/17/19 15:10 Chief Complaint: Stroke/CVA Symptoms Stated Complaint: SLURRED SPEECH, DIFFICULTY SPEAKING ED Provider: Alban Chirinos Discharge Problem: Hypertensive emergency, Transient cerebral ischemia, High serum chloride Patient Disposition: Admitted As Inpatient Discharge Instructions Interventions: ED Discharge Assessment Last Done: 12/17/19 15:10 Discharge Problem: Transient cerebral ischemia Qualifiers: Transient cerebral ischemia type: unspecified Qualified Code(s): G45.9 - Transient cerebral ischemic attack, unspecified
[2019-12-17 12:16] LABS: Basophils # (auto) 0.01 K/uL (0-0.2); Basophils % (auto) 0.1 %; Eosinophils % (auto) 2.4 %; Hematocrit (blood only) 47.2 % (37-47); Hemoglobin 16.2 g/dL (12.0-16.0); Immature Granulocytes # (auto) 0.02 K/uL (0.00-0.02); Immature Granulocytes % (auto) 0.2 %; Lymphocytes # (auto) 1.49 K/uL (1.2-3.4); Lymphocytes % (auto) 17.9 %; Mean Corpuscular Hemoglobin 29.6 pg (25-34); Mean Corpuscular Hgb Conc 34.3 g/dL (32-36); Mean Corpuscular Volume 86.3 fL (80-100); Mean Platelet Volume 10.4 fL (7.4-10.4); Monocytes # (auto) 0.67 K/uL (0.11-0.59); Neutrophils # (auto) 5.94 K/uL (1.4-6.5); Neutrophils % (auto) 71.4 %; Platelet Count 245 K/uL (130-400); RDW Coefficient of Variation 13.2 % (11.5-14.5); Red Blood Count 5.47 M/uL (4.2-5.4); White Blood Count 8.33 K/uL (4.8-10.8)
[2019-12-17] MEDS ORDERED: OPTIRAY 320 125ml IV PRN (12:24)
[2019-12-17 12:27] LABS: Partial Thromboplastin Time 29.1 Seconds (21.0-31.0)
[2019-12-17 12:33] LABS: Alanine Aminotransferase 19 U/L (12-78); Albumin Level 3.5 gm/dl (3.4-5.0); Aspartate Aminotransferase 14 U/L (15-37); BUN Creatinine Ratio 19.4 (10-20); Blood Urea Nitrogen 21 mg/dl (7-18); Calcium 8.9 mg/dl (8.5-10.1); Carbon Dioxide 24 mmol/L (21-32); Chloride 110 mmol/L (98-107); Creatinine Clr Calc Pharmacy 48.8 ml/min; Est GFR (African American) 55.8; Est GFR (Non-African American) 48.1; Glucose 115 mg/dl (70-99); Magnesium 2.4 mg/dl (1.8-2.4); Potassium 4.2 mmol/L (3.5-5.1); Sodium 140 mmol/L (136-145)
[2019-12-17 12:38] LABS: Albumin Globulin Ratio 0.8 (0.9-2); Alkaline Phosphatase 121 U/L (45-117); Bilirubin,Total 0.4 mg/dl (0.2-1); Globulin 4.3 gm/dl (2.5-4.0); Total Protein 7.8 gm/dl (6.4-8.2); Troponin I < 0.015 ng/ml (0-0.045)
--- NOTE | 2019-12-17 12:52 | CT Scan Report ---
CT angio neck with con HISTORY: Mental status change Stroke evaluation TECHNIQUE: Multiaxial CT angiography of the neck was performed IV contrast: 120 cc nonionic All noemy urements were calculated based on NASCET criteria. Maximum intensity projection images were also obt ained. A dose lowering technique was utilized adhering to the principles of ALARA. COMPARISON STUDY: None. FINDINGS: The aortic arch and proximal great vessels are widely patent. There is no significant sten osis, occlusion, or dissection identified within the bilateral common carotid, internal carotid, or v ertebral arteries. There is 30% narrowing of the carotid bifurcations and proximal internal carotid a rteries. There is 50% narrowing distal left vertebral artery. There is tortuosity and ectasia of the vertebral vasculature. IMPRESSION: 1. Moderate plaque formation throughout the carotid bifurcations. 2. 30% narrowing of the carotid bifurcations and proximal internal carotid arteries bilaterally. 3. Multifocal 50% narrowing of the left vertebral artery as described. ACT 112: Negative or not required by law. The above report was generated using voice recognition software. It may contain grammatical, syntax or spelling errors. Electronically signed by: Guille Leone M.D. 12/17/2019 12:51 PM
--- NOTE | 2019-12-17 12:53 | CT Scan Report ---
HEAD CT NONCONTRAST CT DOSE: HISTORY: Slurred speech. Weakness. Stroke evaluation TECHNIQUE: Multiaxial CT images of the head were performed without the use of intravenous contrast. A utomated exposure control was utilized for this study. A dose lowering technique was utilized adheri ng to the principles of ALARA. Comparison: Head CT 10/29/2016. Findings: Small retention cyst within the right maxillary sinus. A 1 cm slightly dense nodule within the right sphenoid sinus. This remains stable may represent a small polyp or calcified retention cyst . The calvarium and skull base are intact. The ventricles and sulci demonstrate mild age-related invo lutional changes. Mild periventricular white matter hypodensity is nonspecific but favor microvascula r ischemic change. This is also unchanged.. There is no hematoma, midline shift, or acute infarct. St able extra-axial calcification at the right high convexity which likely represents a meningioma. Old punctate lacunar infarcts within the right basal ganglia. Impression: No significant change compared to the prior study. No acute intracranial abnormality. ACT 112: Negative or not required by law. Electronically signed by: Ed Eastman M.D. 12/17/2019 12:51 PM
--- NOTE | 2019-12-17 13:00 | CT Scan Report ---
CTA ANGIOGRAPHY OF THE HEAD CLINICAL HISTORY: Stroke evaluation. Slurred speech. Weakness. COMPARISON STUDY: MRA of the head March 02, 2013. TECHNIQUE: Helical axial images of the head were obtained following uneventful intravenous administr ation of 119 cc of Optiray 320. Sagittal and coronal reconstructions were viewed as well as maximal i ntensity projections on an independent 3-D workstation. Automated exposure control was utilized for the study. A dose lowering technique was utilized adhering to the principles of ALARA. CT DOSE: 1183.23 mGy.cm FINDINGS: No acute intracranial hemorrhage, midline shift or mass effect is present. The ventricular system is stable. Basilar cisterns are patent. There are no extra axial collections. Partially calcif ic 1.6 cm extra-axial lesion overlying the right frontal lobe is unchanged. This represents a meningi rhina. Note is made of a probable tiny 2 mm right ICA terminus aneurysm. No additional aneurysms are id entified. Severe multifocal stenoses are identified within the intracranial vessels. Specifically, no te is made of severe stenosis of the bilateral middle cerebral arteries. The right A1 segment is dimi nutive. Severe multifocal stenoses of the left posterior cerebral artery as well as the intracranial portion of the left vertebral artery are noted. There is also stenosis of the basilar artery. No intr aluminal thrombus is identified. IMPRESSION: 1. Severe multifocal stenoses within the intracranial vessels, as described above. No intraluminal th rombus identified. 2. 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 ACT 112: Negative or not required by law. Electronically signed by: Rob Galicia M.D. 12/17/2019 12:58 PM
--- NOTE | 2019-12-17 13:44 | XRay Report ---
XR chest 1V portable HISTORY: Weakness. Slurred speech. Stroke. COMPARISON: Chest 07/26/2015. FINDINGS: Cardiac silhouette is mildly enlarged. The lungs are clear. No pleural effusions. No pneumo thorax. IMPRESSION: Mild cardiomegaly. ACT 112: Negative or not required by law. Electronically signed by: Ed Eastman M.D. 12/17/2019 1:43 PM
[2019-12-17] MEDS ORDERED: HydrALAZINE HCL 20 MG/ML VIAL IV STA ×2 (13:48→14:09)
[2019-12-17] MEDS ORDERED: LABETALOL HCL IV 5 MG/ML 20ML IV STA ×2 (14:53→14:56)
[2019-12-17] MEDS ORDERED: ASPIRIN 300 MG SUPP PR SCH (15:00)
--- NOTE | 2019-12-17 15:07 | History & Physical Report ---
Date of Service December 17, 2019 Assessment & Plan (1) CVA (cerebral vascular accident): (2) Hypertensive emergency: This is an 79-year-old female who has significant past medical history of cerebrovascular disease, T2DM, HTN, HLD, PAD, carotid artery disease, hypothyroidism who presents to ED secondary to strokelike symptoms x3 to 4 days. In ED patient was significantly hypertensive with blood pressure 250/114. In ED she received hydralazine 10 mg IV with minimal improvement. 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 Severe stenosis noted in the bilateral MCAs. Head CT: No significant change compared to the prior study. No acute intracranial abnormality. Pt dysarthria has resolved, mild LLE weakness. Admit to PCU Labetalol 20mg IV x 1 stat and q6h prn SBP > 220 DBP > 110 NPO until seen and eval by speech pt does not meet criteria for TPA wishes for medical management only Pt refusing MRI, will repeat CT w/o contrast in a.m. DNR/DNI PT/ST/OT 300mg ASA IA when cleared by speech reduce ASA to 81mg daily and add plavix 75mg, atorvastatin 40mg neurology consulted echocardiogram ordered (last 07/23 revealed EF 65%, mildly enlarged left atrium, mild AV stenosis, severely enlarged concentric left ventricle concerns for hypertrophic cardiomyopathy -has not been evaluated by cards as outpatient) fasting lipid panel/a1c in a.m. (3) Cerebral vascular disease: CTA head revealed Severe multifocal stenoses within the intracranial vessels, with severe stenosis to the b/l MCAs pt with overall poor detention prognosis given severity of stenosis with likely recurrent stroke like sx wishes for non aggressive measures, opts for med management ASA, add plavix and atorvastatin when passes swallow eval neuro consulted (4) Diabetes: last a1c 7.5 06/27/19 hold metformin repeat a1c in a.m. novolog insulin sliding scale per protocol (5) HTN (hypertension): on coreg as outpt treat of htn emergency as above permissive HTN (6) Carotid artery disease: CTA neck: 1. Moderate plaque formation throughout the carotid bifurcations. 2. 30% narrowing of the carotid bifurcations and proximal internal carotid arteries bilaterally. 3. Multifocal 50% narrowing of the left vertebral artery as described. Pt on ASA, adding plavix previously has been on statin in past - she is unsure why she stopped obtain fasting lipid panel start atorvastatin 40mg after cleared by speech therapy (7) Hypothyroidism: continue levothyroxine (8) DVT prophylaxis: SCD/TEDs for now Disposition: admit to PCU Follow up: PCP Dr. Perez upon discharge Pt was seen and examined in collaboration with Dr. Langston, please see addendum History of Present Illness Chief Complaint: Stroke like sx x 3-4 days. Primary Care Provider: Shirley Perez DO This is an 79-year-old female who has significant past medical history of cerebrovascular disease, T2DM, HTN, HLD, PAD, carotid artery disease, hypothyroidism who presents to ED secondary to strokelike symptoms x3 to 4 days. is at bedside. Patient notes over the past 3 to 4 weeks increased difficulty in walking. She complains of feeling off balance. Over the past 3 to 4 days she also noticed increased and slurred speech. When she woke up this morning she knew what she wanted to say, but according to was slurred when coming up. denies facial droop, syncope, fall or extremity weakness. She further complains of increased right leg weakness. She admits to prior history of stroke 5 years ago when she was told she had a, "sensory stroke." At that time she had numbness and tingling to upper extremity playing piano. She had no residual deficit. She does take a full-strength aspirin daily but did not take this morning. She denies any recent illness, fever, chills, sweats, lightheadedness, dizziness, syncope, fall, chest pain, shortness breath, cough, nausea, vomiting, abdominal pain, change in bowel or urinary habits. She states she likes to garden but this has taken her increased time over the past several days due to feeling off balance. She admits to needing a cane or walker but does not use. Appetite has been stable. Patient is adamant about medical management only. She does not want aggressive treatment. In ED patient was significantly hypertensive with blood pressure 250/114. In ED she received hydralazine 10 mg IV with minimal improvement. 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 Severe stenosis noted in the bilateral MCAs. Head CT: No significant change compared to the prior study. No acute intracranial abnormality. Allergies Allergy/AdvReac Type Severity Reaction Status Date / Time ceftriaxone Allergy Intermediate RASH Verified 12/17/19 12:40 cephalexin Allergy Intermediate RASH Unverified 12/17/19 12:40 Sulfa (Sulfonamide Allergy Unknown Unknown Unverified 12/17/19 12:40 Antibiotics) Home Medications Home Medications Medication Instructions Recorded Confirmed Type aspirin 325 mg tablet 325 mg PO QDL 03/10/18 12/17/19 History carvedilol 6.25 mg tablet 6.25 mg PO QAM 03/10/18 12/17/19 History metformin 500 mg tablet 500 mg PO QDL tab 03/10/18 12/17/19 History levothyroxine 137 mcg PO DAILY 12/17/19 12/17/19 History Past Med/Surg History Medical History (Updated 12/17/19 @ 15:34 by Fatimah Reveles PA-C) Carotid artery disease (Chronic) CVA (cerebral vascular accident) (Chronic) Diabetes (Chronic) Hyperlipidemia (Chronic) Hypertension (Chronic) Hypothyroidism (Chronic) Left ventricular hypertrophy (Chronic) Peripheral vascular disease (Chronic) Surgical History (Updated 12/17/19 @ 15:11 by Fatimah Reveles PA-C) History of tonsillectomy Family History (Updated 12/17/19 @ 15:11 by Fatimah Reveles PA-C) Father Myocardial infarction Mother Colorectal cancer Social History (Updated 12/17/19 @ 15:12 by Fatimah Reveles PA-C) Preferred Language: Mongolian Communication Ability: Effective 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 Required: No Current Living Situation: Spouse current occupational status: retired Feels Safe at Home: Yes Smoking Status: Never smoker Hx Alcohol Use: No Hx Substance Use: No Review of Systems Review of Systems: All systems reviewed & are unremarkable except as noted in HPI & below Physical Exam Physical Exam: Constitutional: WD/WN, elderly, F, vitals as above, NAD, sitting up in bed, pleasant, answers questions appropriately, appears anxious Head: Normocephalic, Atraumatic Eyes: PERRL, conjunctivae normal, anicteric sclerae ENMT: external ear and nose normal, oropharynx normal Neck: trachea midline, no thyromegaly normal visual inspection Respiratory: normal respiratory effort, lungs clear to auscultation, no wheeze, rales, rhonchi. Normal insp/exp effort, no accessory muscle use Cardiovascular: RRR, harsh 3/6 RONEN noted RUSB with radiation, b/l venous stasis changes noted, +1 pedal pulse b/l Vessels: no JVD or carotid bruit Chest: normal inspection of chest Abdomen: normal bowel sounds, soft, nontender, no hepatosplenomegaly Musculoskeletal: no cyanosis or clubbing, extremities motor strength 5/5 , except LLE 4/5, good mash tub cooker strength Skin: no rashes, warm and dry normal turgor Neurologic: PERRL, EOMI, accommodation nl, no face palsy, no dysarthria CN's II-XI intact bilaterally and moves all extremities Psychiatric: A+Ox3 but poor recall , euthymic affect Lymphatic: no cervical or axillary lymphadenopathy : deferred Results & Data Results & Data ([facility]) Vital Signs (Past 12 Hours) Vital Signs Temp Pulse Resp BP BP Pulse Ox 12/17/19 14:37 250/114 H 12/17/19 14:23 254/110 H 12/17/19 14:15 84 22 98 12/17/19 14:01 72 24 246/111 H 97 12/17/19 13:46 80 18 98 12/17/19 13:30 72 18 250/99 H 97 12/17/19 13:16 88 21 96 12/17/19 13:01 71 18 229/80 H 96 12/17/19 12:46 72 19 227/94 H 96 12/17/19 12:34 65 19 228/110 H 97 12/17/19 12:10 97 12/17/19 12:04 69 21 244/124 H 98 12/17/19 11:48 36.4 C L 71 20 225/106 H 97 Laboratory Results Short CBC 12/17/19 Range/Units 12:02 WBC 8.33 (4.8-10.8) K/uL Hgb 16.2 H (12.0-16.0) g/dL Hct 47.2 H (37-47) % Plt Count 245 (130-400) K/uL BMP 12/17/19 12:02 Sodium 140 Potassium 4.2 Chloride 110 H Carbon Dioxide 24 BUN 21 H Creatinine 1.08 Glucose 115 H Calcium 8.9 Cardiac Enzymes 12/17/19 Range/Units 12:02 Troponin I < 0.015 (0-0.045) ng/ml Liver Function 12/17/19 Range/Units 12:02 Total Bilirubin 0.4 (0.2-1) mg/dl AST 14 L (15-37) U/L ALT 19 (12-78) U/L Alkaline Phosphatase 121 H (45-117) U/L Albumin 3.5 (3.4-5.0) gm/dl Diagnostic Findings Head CT: No significant change compared to the prior study. No acute intracranial abnormality. Head CTA: IMPRESSION: 1. Severe multifocal stenoses within the intracranial vessels, as described above. No intraluminal thrombus identified. 2. 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 Neck CTA: IMPRESSION: 1. Moderate plaque formation throughout the carotid bifurcations. 2. 30% narrowing of the carotid bifurcations and proximal internal carotid arteries bilaterally. 3. Multifocal 50% narrowing of the left vertebral artery as described. CXR: IMPRESSION: Mild cardiomegaly. Medications Administered Ioversol (Optiray 320 125ml) 119 ml IV ONCE PRN PRN Reason: Interaction Checking Stop: 12/21/19 12:23 Last Admin: 12/17/19 12:24 Dose: 119 ml Documented by: [id number] Discontinued Medications Hydralazine HCl (Hydralazine Hcl) 10 mg IV NOW STA Stop: 12/17/19 13:49 Last Admin: 12/17/19 13:57 Dose: 10 mg Documented by: [id number] Hydralazine HCl (Hydralazine Hcl) 10 mg IV NOW STA Stop: 12/17/19 14:10 Last Admin: 12/17/19 14:37 Dose: Not Given Documented by: [id number] ECG Rate (beats per minute): 74 Rhythm: normal sinus Code Status & VTE Plan Code Status DNR Pt does not want aggressive measures, no surgical interventions Just medical management VTE Prophylaxis Plan VTE Prophylaxis will be ordered: Yes Supervising Physician Co-Signing Physician Notes Patient is a 89-year-old female with history of CVA, diabetes mellitus, peripheral artery disease and other medical problems presents with history of ongoing balance issues with ambulation for the past few weeks. Also noticed to have slurred speech which has been gradually worsened since past 3 to 4 days. She denies any fall, head trauma, bowel or bladder incontinence, vertigo, facial droop. She admits to having ongoing memory problems lately. Patient prefers only conservative management currently. Please review HPI for complete details of presentation. CT head showed no significant change compared to prior study. Head CTA showed severe multifocal stenosis within the intracranial vessels--bilateral middle cerebral artery, left posterior cerebral artery, left vertebral artery, basilar artery. Patient currently refuses MRI brain, any procedures. She admits to taking her aspirin regularly. In ED her blood pressure is significantly elevated. She denies any headache, change in vision, dizziness. On exam patient is well-built and nourished, no apparent distress, normocephalic atraumatic, lungs are clear to auscultation, S1-S2,+ systolic murmur, no pedal edema, chronic venous stasis changes on lower extremities, abdomen soft, nontender, normal bowel sounds, alert awake oriented, left lower extremity 4/5, otherwise grossly no focal neurologic deficits. Patient is admitted for management of acute CVA, hypertensive ER emergency. She failed swallow eval while in ED. Will give aspirin rectally. Will add Lipitor, Plavix when able to swallow. Will control blood pressure with IV labetalol. Will consider Nicardipine drip, if remains uncontrolled. Patient prefers conservative management. Neurology updated. Will check echo. I personally reviewed the record. Patient is interviewed and examined at bedside. Patient's care is coordinated with Fatimah Reveles PA-C. Please refer to the documentation above for details of patient's presentation and for discussion of other issues.
[2019-12-17] MEDS ORDERED: GLUCOSE 10 TABS/TUBE PO PRN (16:31)
[2019-12-17] MEDS ORDERED: GLUCAGON FOR INJ 1 MG VIAL SQ PRN (16:31)
[2019-12-17] MEDS ORDERED: LABETALOL HCL IV 5 MG/ML 20ML IV PRN (16:31)
[2019-12-17] MEDS ORDERED: PHARMACIST DISCHARGE MED REC CONSULT PRN (16:31)
[2019-12-17] MEDS ORDERED: DEXTROSE 50% 50 ML SYRINGE IV PRN (16:31)
[2019-12-17] MEDS ORDERED: CARBOHYDRATES FOR HYPOGLYCEMIA PO PRN (16:31)
[2019-12-17] MEDS ORDERED: GLUCOSE 40% GEL 15 GM TUBE PO PRN (16:31)
[2019-12-17] MEDS: INSULIN ASPART 100 UNITS/ML 3 ML PEN SC SCH ×2 (17:20→21:33)
--- NOTE | 2019-12-17 18:46 | Consultation Report ---
DATE OF CONSULTATION: 12/17/2019 NEUROLOGY CONSULTATION NOTE CHIEF COMPLAINT: Dysarthria. HISTORY OF PRESENT ILLNESS: This is an 79-year-old woman brought to the Emergency Department this afternoon by her family due to concern for her speech as well as trouble walking. The patient is currently a poor historian and reluctant to provide any information. When asked why she is in the ER, she said she forgets and asked that I refer to the paperwork located in the Emergency Department; however, once there was some rapport gained, she did note that she is here due to some complaint of left leg weakness as well as some trouble speaking, although she believes her speech has improved. She states largely that her family including her son and made her come to the ER as she had not been feeling well for the last 3-4 days. She does have multiple medical comorbidities including a known history of cerebrovascular disease, type 2 diabetes, hypertension, hyperlipidemia, peripheral vascular disease, chronic wounds on her lower extremities, carotid artery disease as well as hypothyroidism. She is on aspirin 81 mg daily. She denies alcohol use and she is a nonsmoker. She currently denies pain or headache. She does report trouble walking, which she states has been going on for the last few days. She does endorse some weakness in her right arm compared to the left. She was being admitted from the ER due to elevated blood pressures and concern for possible stroke. However, the patient was reluctant for admission and is asking that limited diagnostic testing be performed. ALLERGIES: CEFTRIAXONE, CEPHALEXIN AND SULFA ANTIBIOTICS, ALL OF WHICH REPORTEDLY CAUSE A RASH. HOME MEDICATIONS: Include aspirin 325 mg daily, carvedilol 6.25 mg daily, metformin 500 mg daily, and Synthroid 137 mcg daily. PAST MEDICAL HISTORY: Carotid artery disease, cerebrovascular accident, type 2 diabetes, hyperlipidemia, hypertension, hypothyroidism, peripheral vascular disease. PAST SURGICAL HISTORY: She has a history of tonsillectomy. No recent surgeries. FAMILY HISTORY: Her father had a myocardial infarction and is now . Her mother is also and had a colorectal cancer. SOCIAL HISTORY: She is and retired. She lives at home with her and son. She is a nonsmoker and she denies alcohol or substance abuse history. REVIEW OF SYSTEMS: A 15-point review of systems was conducted at bedside and negative except as noted above in the HPI. PHYSICAL EXAMINATION: VITAL SIGNS: Her blood pressure is 212/78, her pulse is 69, her respiratory rate is 20, her temperature is 36.7. She is saturating at 96% on room air. CONSTITUTIONAL: The patient appears chronically ill, morbidly obese and in mild distress. HEENT: Her face is normocephalic and atraumatic. Eyes: She has mild conjunctival injection in both eyes. Her lids appear normal. NECK: Supple. RESPIRATORY RATE: She has a normal effort with no cough or wheezing noted. CARDIOVASCULAR: Her pulses are intact. ABDOMEN: Indeed distended and nontender to palpation. SKIN: There is some chronic venous stasis changes noted in both of the lower extremities. PSYCHIATRIC: The patient appears somewhat anxious and in mild distress with poor eye contact. NEUROLOGIC: Appearance: She is in some mild distress and anxious at times. Orientation: She is awake, alert and oriented to person and place and oriented to her age. Her attention is decreased. Her knowledge is poor. Her speech is clear, although soft. Comprehension is intact and she is following commands. She is able to repeat. Cranial nerve II: Visual field is grossly intact to confrontation. Her pupils are round and equal and reactive to light. Her extraocular muscles are intact. Her facial sensation is intact. Her face is symmetric with smile. Her hearing is grossly intact. Her palate is symmetric. Her tongue is midline. She is able to puff her cheeks out well, raise her eyebrows equally and her shoulder shrug is intact. Gait is wide based and short stride. She is unable to perform tandem gait. Coordination: She has no ataxia with [id number] testing. Sensory exam is intact to light touch in both upper and lower extremities. Muscle tone is normal. Muscle strength testing reveals some right upper extremity weakness 4+/5 with shoulder abduction. Reflex rose, her Lira sign is negative bilaterally. There is no ankle clonus and toes seem to be equivocal. DIAGNOSTIC TESTING WELL LABORATORY VALUES: Her WBC is 8.33, hemoglobin is 16.2 and her platelet count is 245. INR is 1.0. Her sodium is 140, potassium is 4.2, chloride is 110, carbon dioxide is 24, her BUN is 21, her creatinine is 1.08. Her glucose is 115. Her calcium is 8.9, magnesium is 2.4. Her AST is 14. Her ALT is 19. Her alkaline phosphatase is mildly elevated at 121. Her troponin is negative. IMAGING: Head CT, noncontrast: No significant change compared to the prior study. There is no evidence of an acute ischemic stroke. Previous head CT was performed in 10/2016. Mild age-related involutional changes, which is likely suggestive of nonspecific microvascular ischemic change. There are old punctate lacunar infarcts within the right basal ganglia. Head and neck CTA: Severe multifocal stenosis within the intracranial vessels. There is no intraluminal thrombus identified. 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 There is moderate plaque formation throughout the carotid bifurcations. There is 30% narrowing of the carotid bifurcations and proximal internal carotid arteries bilaterally. There is some multifocal 50% narrowing of the left vertebral artery. ASSESSMENT AND PLAN: This is an 79-year-old woman with multiple medical comorbidities including known peripheral vascular disease, history of prior stroke, on aspirin 325 mg daily, hypertension, type 2 diabetes, and hyperlipidemia, presenting to the Emergency Department for a collection of ill-defined symptoms as the patient appears reluctant to explain why she is here, although one of the symptoms is concerning for a subacute change in her speech as well as walking. In the Emergency Department, her blood pressure was noted to be significantly elevated suggestive of a hypertensive emergency. Unclear if this is associated with a recent or subacute lacunar infarct, although the patient is reluctant and not willing to have an MRI brain without contrast performed. At this time, she is asking for limited diagnostic testing and does appear to have some decision making capacity. I agree with starting dual antiplatelet therapy given her intracranial atherosclerotic disease. We will plan to start aspirin 81 mg daily and Plavix 75 mg daily. As discussed with the Emergency Department physician, would recommend slowly decreasing the blood pressure to a goal of systolic blood pressure less than 140 and a diastolic blood pressure of less than 90 mmHg. I would recommend increasing or changing her statin medication to a high intensity statin such as Lipitor 80 mg daily or Crestor 40 mg daily. In regards to her difficulty walking, it does appear that she has some truncal ataxia, which may be consistent with her diabetes. I would recommend checking a hemoglobin A1c. Goal hemoglobin A1c is less than 7. Would recommend physical therapy and occupational therapy as well as speech and swallow therapy. Telemetry while the patient is admitted to the hospital for evaluation of paroxysmal atrial fibrillation if the patient is agreeable, would also recommend a transthoracic echocardiogram. Patient can follow up with PCP. Dr. Sivan Mcgee will start on service tomorrow. Otherwise I do not believe neurology has anything additional to add at this time. Please contact neurology with any further questions or concerns. MADY
--- NOTE | 2019-12-17 19:05 | Electrocardiogram Report ---
Test Reason : Blood Pressure : / mmHG Vent. Rate : 074 BPM Atrial Rate : 074 BPM P-R Int : 154 ms QRS Dur : 118 ms QT Int : 436 ms P-R-T Axes : 049 -63 110 degrees QTc Int : 483 ms Poor data quality, interpretation may be adversely affected Normal sinus rhythm Possible Left atrial enlargement Left anterior fascicular block Left ventricular hypertrophy with QRS widening and repolarization abnormality Abnormal ECG When compared with ECG of 29-OCT-2016 12:41, T wave inversion more evident in Lateral leads Confirmed by Harry Perkins ([id number]) on 12/17/2019 7:05:15 PM Referred By: Confirmed By:Silas Perkins
[2019-12-18 07:41] LABS: Basophils # (auto) 0.02 K/uL (0-0.2); Basophils % (auto) 0.3 %; Eosinophils # (auto) 0.14 K/uL (0-0.5); Hematocrit (blood only) 45.3 % (37-47); Hemoglobin 15.4 g/dL (12.0-16.0); Immature Granulocytes # (auto) 0.01 K/uL (0.00-0.02); Immature Granulocytes % (auto) 0.1 %; Lymphocytes # (auto) 1.21 K/uL (1.2-3.4); Mean Corpuscular Hemoglobin 29.5 pg (25-34); Mean Corpuscular Volume 86.8 fL (80-100); Mean Platelet Volume 10.6 fL (7.4-10.4); Neutrophils # (auto) 5.25 K/uL (1.4-6.5); Neutrophils % (auto) 73.6 %; Platelet Count 228 K/uL (130-400); RDW Coefficient of Variation 13.5 % (11.5-14.5); RDW Standard Deviation 42.8 fL (36.4-46.3); Red Blood Count 5.22 M/uL (4.2-5.4); White Blood Count 7.13 K/uL (4.8-10.8)
[2019-12-18 08:05] LABS: Estimated Average Glucose 163 mg/dl; Hemoglobin A1C 7.3 % (4.5-5.6)
[2019-12-18 08:12] LABS: BUN Creatinine Ratio 19.2 (10-20); Calcium 8.5 mg/dl (8.5-10.1); Creatinine Clr Calc Pharmacy 58.5 ml/min; Est GFR (African American) 70.4; Est GFR (Non-African American) 60.8; Potassium 3.8 mmol/L (3.5-5.1)
[2019-12-18] MEDS: INSULIN ASPART 100 UNITS/ML 3 ML PEN SC SCH ×4 (08:16→20:53)
--- NOTE | 2019-12-18 09:17 | CT Scan Report ---
CT head/brain wo con CT DOSE: 921.40 mGy.cm HISTORY: Mental status change repeat TECHNIQUE: Multiaxial CT images of the head were performed without the use of intravenous contrast. A dose lowering technique was utilized adhering to the principles of ALARA. Comparison: 12/17/2019 Findings: The paranasal sinuses and mastoid air cells are clear. The calvarium and skull base are int act. The ventricles and sulci are within normal limits. There is no mass, hematoma, midline shift, or acute infarct. Mild age-related chronic small vessel change and atrophy. Unchanged calcified meningi rhina right cerebral apex. Impression: Chronic change. No acute process. No change from the prior exam. ACT 112: Negative or not required by law. The above report was generated using voice recognition software. It may contain grammatical, syntax or spelling errors. Electronically signed by: Guille Leone M.D. 12/18/2019 9:16 AM
--- NOTE | 2019-12-18 09:48 | Hospitalist Progress Note ---
Date of Service December 18, 2019 Assessment & Plan (1) CVA (cerebral vascular accident): (2) Hypertensive emergency: This is an 79-year-old female who has significant past medical history of cerebrovascular disease, T2DM, HTN, HLD, PAD, carotid artery disease, hypothyroidism who presents to ED secondary to strokelike symptoms (slurred speech, RLE weakness) x3 to 4 days. In ED patient was significantly hypertensive with blood pressure 250/114. In ED she received hydralazine 10 mg IV with minimal improvement. 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 Severe stenosis noted in the bilateral MCAs. Head CT: No significant change compared to the prior study. No acute intracranial abnormality. Labetalol 20mg IV x 1 stat and q6h prn SBP > 220 DBP > 110 NPO until seen and eval by speech pt does not meet criteria for TPA wishes for medical management only Pt refusing MRI, repeated CT w/o contrast in a.m. - no change from prior CT noted DNR/DNI PT/ST/OT - recommend rehab 300mg ASA AL given on admission when cleared by speech reduce ASA to 81mg daily and add plavix 75mg, atorvastatin 80mg neurology consulted echocardiogram ordered (last 07/23 revealed EF 65%, mildly enlarged left atrium, mild AV stenosis, severely enlarged concentric left ventricle concerns for hypertrophic cardiomyopathy -has not been evaluated by cards as outpatient) Current echo shows no ASD fasting lipid panel obtained LDL 248, HbA1c 7.3% (3) Cerebral vascular disease: CTA head revealed Severe multifocal stenoses within the intracranial vessels, with severe stenosis to the b/l MCAs pt with overall poor assisted prognosis given severity of stenosis with likely recurrent stroke like sx wishes for non aggressive measures, opts for med management ASA, add plavix and atorvastatin when passes swallow eval neuro consulted (4) Diabetes: last a1c 7.5 06/27/19 hold metformin repeat a1c 7.3% novolog insulin sliding scale per protocol (5) HTN (hypertension): on coreg as outpt treat of htn emergency as above permissive HTN (6) Carotid artery disease: CTA neck: 1. Moderate plaque formation throughout the carotid bifurcations. 2. 30% narrowing of the carotid bifurcations and proximal internal carotid arteries bilaterally. 3. Multifocal 50% narrowing of the left vertebral artery as described. Pt on ASA, adding plavix previously has been on statin in past - she is unsure why she stopped obtained fasting lipid panel, LDL 248 start atorvastatin 80mg after cleared by speech therapy (7) Hypothyroidism: continue levothyroxine (8) DVT prophylaxis: SCD/TEDs for now Disposition: admit to PCU Follow up: PCP Dr. Perez upon discharge Admission and Anticipated Discharge Date Admission Date: December 17, 2019 Subjective Pt is lying in bed, in NAD. No fever, chills, chest pain, shortness of breath, abd. pain. Significant weakness in RLE, and some in RUE, also some facial weakness. Discussed d/c to rehab and progressive BP control. Pt's updated over the phone. A1c 7.3% Echo - no ASD Started plavix, lipitor Review of Systems Review of Systems: All systems reviewed & are unremarkable except as noted in HPI & below Constitutional: no fever and no chills Respiratory: no cough and no dyspnea Cardiovascular: no chest pain and no palpitations Gastrointestinal: no abdominal pain, no nausea and no vomiting Physical Exam Physical Exam: Constitutional: WD/WN, elderly, F, in NAD, sitting up in bed, pleasant, answers questions appropriately, appears anxious Head: Normocephalic, Atraumatic Eyes: PERRL, conjunctivae normal, anicteric sclerae ENMT: external ear and nose normal, oropharynx normal Neck: trachea midline, no thyromegaly normal visual inspection Respiratory: normal respiratory effort, lungs clear to auscultation, no wheeze, rales, rhonchi. Normal insp/exp effort, no accessory muscle use Cardiovascular: RRR, 3/6 RONEN noted at RUSB with radiation, b/l venous stasis changes noted, +1 pedal pulse b/l Vessels: no JVD or carotid bruit Chest: normal inspection of chest Abdomen: normal bowel sounds, soft, nontender Musculoskeletal: no cyanosis or clubbing, extremities motor strength 5/5 , except LLE 4/5, good line cook strength Skin: no rashes, warm and dry normal turgor, venous stasis changes LEs Neuro/psych: alert and oriented and answers questions appropriately, but slowly and speech seems to be little slurred. raises eyebrows b/l, puffs cheeks, but smile seems asymmetric. She can lift her RUE off bed but can't move fingers of right hand very much on her own, she also has significant weakness in her RLE. She can move LLE and LUE without difficulty. No sensory loss noted. Results & Data Results & Data ([facility]) Vital Signs (Past 12 Hours) Vital Signs Temp Pulse Resp BP Pulse Ox 12/18/19 07:12 37.0 C 70 19 179/91 H 94 12/18/19 07:07 182/82 H 12/18/19 04:28 37.1 C 81 22 93 12/18/19 02:17 178/95 H 12/18/19 00:08 37.1 C 69 22 170/80 H 94 Laboratory Results 12/18/19 12/18/19 12/18/19 Range/Units 06:43 06:43 06:43 WBC 7.13 (4.8-10.8) K/uL RBC 5.22 (4.2-5.4) M/uL Hgb 15.4 (12.0-16.0) g/dL Hct 45.3 (37-47) % MCV 86.8 (80-100) fL MCH 29.5 (25-34) pg MCHC 34.0 (32-36) g/dL RDW Std Deviation 42.8 (36.4-46.3) fL RDW Coeff of Eliza 13.5 (11.5-14.5) % Plt Count 228 (130-400) K/uL MPV 10.6 H (7.4-10.4) fL Immature Gran % (Auto) 0.1 % Neut % (Auto) 73.6 % Lymph % (Auto) 17.0 % Carlton % (Auto) 7.0 % Eos % (Auto) 2.0 % Baso % (Auto) 0.3 % Neut # (Auto) 5.25 (1.4-6.5) K/uL Lymph # (Auto) 1.21 (1.2-3.4) K/uL Carlton # (Auto) 0.50 (0.11-0.59) K/uL Eos # (Auto) 0.14 (0-0.5) K/uL Baso # (Auto) 0.02 (0-0.2) K/uL Immature Gran # (Auto) 0.01 (0.00-0.02) K/uL PT (9.0-12.0) Seconds INR (0.9-1.1) APTT (21.0-31.0) Seconds PTT Ratio Sodium 141 (136-145) mmol/L Potassium 3.8 (3.5-5.1) mmol/L Chloride 111 H (98-107) mmol/L Carbon Dioxide 24 (21-32) mmol/L Anion Gap 6.0 (3-11) BUN 17 (7-18) mg/dl Creatinine 0.89 (0.6-1.2) mg/dl Est Cr Clr Drug Dosing 58.5 ml/min Est GFR ( Amer) 70.4 Est GFR (Non-Af Amer) 60.8 BUN/Creatinine Ratio 19.2 (10-20) Glucose 153 H (70-99) mg/dl POC Glucose (70-99) mg/dl Estimat Average Glucose 163 mg/dl Hemoglobin A1c 7.3 H (4.5-5.6) % Calcium 8.5 (8.5-10.1) mg/dl Magnesium (1.8-2.4) mg/dl Total Bilirubin (0.2-1) mg/dl AST (15-37) U/L ALT (12-78) U/L Alkaline Phosphatase (45-117) U/L Troponin I (0-0.045) ng/ml Total Protein (6.4-8.2) gm/dl Albumin (3.4-5.0) gm/dl Globulin (2.5-4.0) gm/dl Albumin/Globulin Ratio (0.9-2) Triglycerides 210 H (0-150) mg/dl Cholesterol 331 H (0-200) mg/dl LDL Cholesterol, Calc 248 mg/dl VLDL Cholesterol, Calc 42 mg/dl HDL Cholesterol 41 mg/dl Cholesterol/HDL Ratio 8 Blood Type Antibody Screen 12/17/19 12/17/19 12/17/19 Range/Units 20:29 17:17 12:02 WBC (4.8-10.8) K/uL RBC (4.2-5.4) M/uL Hgb (12.0-16.0) g/dL Hct (37-47) % MCV (80-100) fL MCH (25-34) pg MCHC (32-36) g/dL RDW Std Deviation (36.4-46.3) fL RDW Coeff of Eliza (11.5-14.5) % Plt Count (130-400) K/uL MPV (7.4-10.4) fL Immature Gran % (Auto) % Neut % (Auto) % Lymph % (Auto) % Carlton % (Auto) % Eos % (Auto) % Baso % (Auto) % Neut # (Auto) (1.4-6.5) K/uL Lymph # (Auto) (1.2-3.4) K/uL Carlton # (Auto) (0.11-0.59) K/uL Eos # (Auto) (0-0.5) K/uL Baso # (Auto) (0-0.2) K/uL Immature Gran # (Auto) (0.00-0.02) K/uL PT (9.0-12.0) Seconds INR (0.9-1.1) APTT (21.0-31.0) Seconds PTT Ratio Sodium 140 (136-145) mmol/L Potassium 4.2 (3.5-5.1) mmol/L Chloride 110 H (98-107) mmol/L Carbon Dioxide 24 (21-32) mmol/L Anion Gap 6.0 (3-11) BUN 21 H (7-18) mg/dl Creatinine 1.08 (0.6-1.2) mg/dl Est Cr Clr Drug Dosing 48.8 ml/min Est GFR ( Amer) 55.8 Est GFR (Non-Af Amer) 48.1 BUN/Creatinine Ratio 19.4 (10-20) Glucose 115 H (70-99) mg/dl POC Glucose 138 H 132 H (70-99) mg/dl Estimat Average Glucose mg/dl Hemoglobin A1c (4.5-5.6) % Calcium 8.9 (8.5-10.1) mg/dl Magnesium 2.4 (1.8-2.4) mg/dl Total Bilirubin 0.4 (0.2-1) mg/dl AST 14 L (15-37) U/L ALT 19 (12-78) U/L Alkaline Phosphatase 121 H (45-117) U/L Troponin I < 0.015 (0-0.045) ng/ml Total Protein 7.8 (6.4-8.2) gm/dl Albumin 3.5 (3.4-5.0) gm/dl Globulin 4.3 H (2.5-4.0) gm/dl Albumin/Globulin Ratio 0.8 L (0.9-2) Triglycerides (0-150) mg/dl Cholesterol (0-200) mg/dl LDL Cholesterol, Calc mg/dl VLDL Cholesterol, Calc mg/dl HDL Cholesterol mg/dl Cholesterol/HDL Ratio Blood Type Antibody Screen 12/17/19 12/17/19 12/17/19 Range/Units 12:02 12:02 12:02 WBC 8.33 (4.8-10.8) K/uL RBC 5.47 H (4.2-5.4) M/uL Hgb 16.2 H (12.0-16.0) g/dL Hct 47.2 H (37-47) % MCV 86.3 (80-100) fL MCH 29.6 (25-34) pg MCHC 34.3 (32-36) g/dL RDW Std Deviation 42.0 (36.4-46.3) fL RDW Coeff of Eliza 13.2 (11.5-14.5) % Plt Count 245 (130-400) K/uL MPV 10.4 (7.4-10.4) fL Immature Gran % (Auto) 0.2 % Neut % (Auto) 71.4 % Lymph % (Auto) 17.9 % Carlton % (Auto) 8.0 % Eos % (Auto) 2.4 % Baso % (Auto) 0.1 % Neut # (Auto) 5.94 (1.4-6.5) K/uL Lymph # (Auto) 1.49 (1.2-3.4) K/uL Carlton # (Auto) 0.67 H (0.11-0.59) K/uL Eos # (Auto) 0.20 (0-0.5) K/uL Baso # (Auto) 0.01 (0-0.2) K/uL Immature Gran # (Auto) 0.02 (0.00-0.02) K/uL PT 11.0 (9.0-12.0) Seconds INR 1.0 (0.9-1.1) APTT 29.1 (21.0-31.0) Seconds PTT Ratio 1.0 Sodium (136-145) mmol/L Potassium (3.5-5.1) mmol/L Chloride (98-107) mmol/L Carbon Dioxide (21-32) mmol/L Anion Gap (3-11) BUN (7-18) mg/dl Creatinine (0.6-1.2) mg/dl Est Cr Clr Drug Dosing ml/min Est GFR ( Amer) Est GFR (Non-Af Amer) BUN/Creatinine Ratio (10-20) Glucose (70-99) mg/dl POC Glucose (70-99) mg/dl Estimat Average Glucose mg/dl Hemoglobin A1c (4.5-5.6) % Calcium (8.5-10.1) mg/dl Magnesium (1.8-2.4) mg/dl Total Bilirubin (0.2-1) mg/dl AST (15-37) U/L ALT (12-78) U/L Alkaline Phosphatase (45-117) U/L Troponin I (0-0.045) ng/ml Total Protein (6.4-8.2) gm/dl Albumin (3.4-5.0) gm/dl Globulin (2.5-4.0) gm/dl Albumin/Globulin Ratio (0.9-2) Triglycerides (0-150) mg/dl Cholesterol (0-200) mg/dl LDL Cholesterol, Calc mg/dl VLDL Cholesterol, Calc mg/dl HDL Cholesterol mg/dl Cholesterol/HDL Ratio Blood Type A Positive Antibody Screen NEGATIVE 12/17/19 Range/Units 12:00 WBC (4.8-10.8) K/uL RBC (4.2-5.4) M/uL Hgb (12.0-16.0) g/dL Hct (37-47) % MCV (80-100) fL MCH (25-34) pg MCHC (32-36) g/dL RDW Std Deviation (36.4-46.3) fL RDW Coeff of Eliza (11.5-14.5) % Plt Count (130-400) K/uL MPV (7.4-10.4) fL Immature Gran % (Auto) % Neut % (Auto) % Lymph % (Auto) % Carlton % (Auto) % Eos % (Auto) % Baso % (Auto) % Neut # (Auto) (1.4-6.5) K/uL Lymph # (Auto) (1.2-3.4) K/uL Carlton # (Auto) (0.11-0.59) K/uL Eos # (Auto) (0-0.5) K/uL Baso # (Auto) (0-0.2) K/uL Immature Gran # (Auto) (0.00-0.02) K/uL PT (9.0-12.0) Seconds INR (0.9-1.1) APTT (21.0-31.0) Seconds PTT Ratio Sodium (136-145) mmol/L Potassium (3.5-5.1) mmol/L Chloride (98-107) mmol/L Carbon Dioxide (21-32) mmol/L Anion Gap (3-11) BUN (7-18) mg/dl Creatinine (0.6-1.2) mg/dl Est Cr Clr Drug Dosing ml/min Est GFR ( Amer) Est GFR (Non-Af Amer) BUN/Creatinine Ratio (10-20) Glucose (70-99) mg/dl POC Glucose 108 H (70-99) mg/dl Estimat Average Glucose mg/dl Hemoglobin A1c (4.5-5.6) % Calcium (8.5-10.1) mg/dl Magnesium (1.8-2.4) mg/dl Total Bilirubin (0.2-1) mg/dl AST (15-37) U/L ALT (12-78) U/L Alkaline Phosphatase (45-117) U/L Troponin I (0-0.045) ng/ml Total Protein (6.4-8.2) gm/dl Albumin (3.4-5.0) gm/dl Globulin (2.5-4.0) gm/dl Albumin/Globulin Ratio (0.9-2) Triglycerides (0-150) mg/dl Cholesterol (0-200) mg/dl LDL Cholesterol, Calc mg/dl VLDL Cholesterol, Calc mg/dl HDL Cholesterol mg/dl Cholesterol/HDL Ratio Blood Type Antibody Screen Medications Administered Current Inpatient Medications Aspirin (Aspirin) 300 mg AL DAILY [facility] Stop: 01/16/20 14:59 Last Admin: 12/17/19 15:28 Dose: 300 mg Documented by: Aspirin (Ecotrin Ectab) 81 mg PO QAM [facility] Stop: 01/17/20 08:59 Atorvastatin Calcium (Lipitor) 80 mg PO QAM [facility] Stop: 01/17/20 09:59 Clopidogrel Bisulfate (Plavix) 75 mg PO QAM [facility] Stop: 01/17/20 08:59 Dextrose (Dextrose 50%) 25 - 50 ml IV UD PRN; Protocol PRN Reason: Hypoglycemia Protocol Stop: 01/16/20 16:30 Glucagon (Glucagen) 1 mg SQ UD PRN; Protocol PRN Reason: Hypoglycemia Protocol Stop: 01/16/20 16:30 Glucose (Dex4 Glucose) 4 - 8 tabs PO UD PRN; Protocol PRN Reason: Hypoglycemia Protocol Stop: 01/16/20 16:30 Glucose (Glucose 40%) 15 - 30 gm PO UD PRN; Protocol PRN Reason: Hypoglycemia Protocol Stop: 01/16/20 16:30 Insulin [facility]art [facility]) [facility] Stop: 01/16/20 16:30 Last Admin: 12/18/19 08:16 Dose: Not Given Documented by: Labetalol HCl (Normodyne) 10 mg IV Q6H PRN PRN Reason: hypertension Stop: 01/16/20 16:30 Last Admin: 12/17/19 18:04 Dose: 10 mg Documented by: Miscellaneous (Carbohydrates For Hypoglycemia) 15 - 30 gm PO UD PRN PRN Reason: Hypoglycemia Protocol Stop: 01/16/20 16:30 Miscellaneous Information (Pharmacist Discharge Med Rec Consult) 1 ea N/A UD PRN PRN Reason: Consult Stop: 01/16/20 16:30
[2019-12-18] MEDS ORDERED: AMLODIPINE BESYLATE 5 MG TAB PO SCH (10:00)
[2019-12-18] MEDS ORDERED: carvediloL 3.125 MG TAB PO SCH (10:00)
[2019-12-18] MEDS: ATORVASTATIN 40 MG TAB PO SCH (10:28)
[2019-12-18] MEDS: ASPIRIN 81 MG ECTAB PO SCH (10:28)
[2019-12-18] MEDS: CLOPIDOGREL BISULFATE 75 MG TAB PO SCH (10:28)
[2019-12-18] MEDS ORDERED: carvediloL 3.125 MG TAB PO ONE (14:47)
[2019-12-18] MEDS ORDERED: HydrALAZINE 10 MG TAB PO SCH (20:00)
[2019-12-18] MEDS: carvediloL 6.25 MG TAB PO SCH (20:52)
[2019-12-19] MEDS: HydrALAZINE HCL 20 MG/ML VIAL IV PRN (00:33)
[2019-12-19 05:49] LABS: Eosinophils # (auto) 0.16 K/uL (0-0.5); Eosinophils % (auto) 2.4 %; Hematocrit (blood only) 45.5 % (37-47); Hemoglobin 15.3 g/dL (12.0-16.0); Immature Granulocytes # (auto) 0.01 K/uL (0.00-0.02); Immature Granulocytes % (auto) 0.1 %; Lymphocytes # (auto) 1.31 K/uL (1.2-3.4); Lymphocytes % (auto) 19.3 %; Mean Corpuscular Hemoglobin 29.3 pg (25-34); Mean Corpuscular Hgb Conc 33.6 g/dL (32-36); Mean Platelet Volume 10.5 fL (7.4-10.4); Monocytes # (auto) 0.53 K/uL (0.11-0.59); Monocytes % (auto) 7.8 %; Neutrophils # (auto) 4.77 K/uL (1.4-6.5); Neutrophils % (auto) 70.4 %; Platelet Count 246 K/uL (130-400); RDW Coefficient of Variation 13.7 % (11.5-14.5); RDW Standard Deviation 43.7 fL (36.4-46.3); Red Blood Count 5.23 M/uL (4.2-5.4); White Blood Count 6.78 K/uL (4.8-10.8)
[2019-12-19 06:17] LABS: BUN Creatinine Ratio 21.1 (10-20); Calcium 8.4 mg/dl (8.5-10.1); Creatinine Clr Calc Pharmacy 60.5 ml/min; Est GFR (African American) 73.4; Est GFR (Non-African American) 63.4; Magnesium 2.3 mg/dl (1.8-2.4); Potassium 3.7 mmol/L (3.5-5.1)
[2019-12-19 06:18] LABS: Phosphorus 2.8 mg/dl (2.5-4.9)
[2019-12-19] MEDS: INSULIN ASPART 100 UNITS/ML 3 ML PEN SC SCH ×4 (08:15→21:23)
[2019-12-19] MEDS: carvediloL 6.25 MG TAB PO SCH ×2 (08:16→19:33)
[2019-12-19] MEDS: ATORVASTATIN 40 MG TAB PO SCH (08:16)
[2019-12-19] MEDS: ASPIRIN 81 MG ECTAB PO SCH (08:17)
[2019-12-19] MEDS: CLOPIDOGREL BISULFATE 75 MG TAB PO SCH (08:17)
[2019-12-19] MEDS ORDERED: POTASSIUM CHLORIDE 20 MEQ TABCR PO STA (10:45)
--- NOTE | 2019-12-19 10:48 | Hospitalist Progress Note ---
Date of Service December 19, 2019 Assessment & Plan (1) CVA (cerebral vascular accident): (2) Hypertensive emergency: This is an 79-year-old female who has significant past medical history of cerebrovascular disease, T2DM, HTN, HLD, PAD, carotid artery disease, hypothyroidism who presents to ED secondary to strokelike symptoms (slurred speech, RLE weakness) x3 to 4 days. In ED patient was significantly hypertensive with blood pressure 250/114. In ED she received hydralazine 10 mg IV with minimal improvement. 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 Severe stenosis noted in the bilateral MCAs. Head CT: No significant change compared to the prior study. No acute intracranial abnormality. Labetalol 20mg IV x 1 stat and q6h prn SBP > 220 DBP > 110 NPO until seen and eval by speech pt does not meet criteria for TPA wishes for medical management only Pt refusing MRI, repeated CT w/o contrast in a.m. - no change from prior CT noted DNR/DNI PT/ST/OT - recommend rehab 300mg ASA SC given on admission when cleared by speech reduce ASA to 81mg daily and add plavix 75mg, atorvastatin 80mg neurology consulted echocardiogram ordered (last 07/23 revealed EF 65%, mildly enlarged left atrium, mild AV stenosis, severely enlarged concentric left ventricle concerns for hypertrophic cardiomyopathy -has not been evaluated by cards as outpatient) Current echo shows no ASD fasting lipid panel obtained LDL 248, HbA1c 7.3% (3) Cerebral vascular disease: CTA head revealed Severe multifocal stenoses within the intracranial vessels, with severe stenosis to the b/l MCAs pt with overall poor correction prognosis given severity of stenosis with likely recurrent stroke like sx wishes for non aggressive measures, opts for med management ASA, add plavix and atorvastatin when passes swallow eval neuro consulted (4) Diabetes: last a1c 7.5 06/27/19 hold metformin repeat a1c 7.3% novolog insulin sliding scale per protocol (5) HTN (hypertension): on coreg as outpt treat of htn emergency as above permissive HTN (6) Carotid artery disease: CTA neck: 1. Moderate plaque formation throughout the carotid bifurcations. 2. 30% narrowing of the carotid bifurcations and proximal internal carotid arteries bilaterally. 3. Multifocal 50% narrowing of the left vertebral artery as described. Pt on ASA, adding plavix previously has been on statin in past - she is unsure why she stopped obtained fasting lipid panel, LDL 248 start atorvastatin 80mg after cleared by speech therapy (7) Hypothyroidism: continue levothyroxine (8) DVT prophylaxis: SCD/TEDs for now Disposition: admit to PCU Follow up: PCP Dr. Perez upon discharge Admission and Anticipated Discharge Date Admission Date: December 17, 2019 Subjective Pt is lying in bed, in NAD. No fever, chills, chest pain, shortness of breath, abd. pain. Significant weakness in RLE, and also in RUE, also some facial weakness. Patient still having troubles with swallowing, speech is swallowing, recommend swallow study Discussed d/c to rehab and progressive BP control. A1c 7.3% Echo - no ASD Started plavix, lipitor Review of Systems Review of Systems: All systems reviewed & are unremarkable except as noted in HPI & below Constitutional: no fever and no chills Respiratory: no cough and no dyspnea Cardiovascular: no chest pain and no palpitations Gastrointestinal: no abdominal pain and no vomiting Neurologic: Right-sided weakness Physical Exam Physical Exam: Constitutional: WD/WN, elderly, F, in NAD, sitting up in bed, answers questions appropriately Head: Normocephalic, Atraumatic Eyes: PERRL, conjunctivae normal, anicteric sclerae ENMT: external ear and nose normal, oropharynx normal Neck: trachea midline, no thyromegaly normal visual inspection Respiratory: normal respiratory effort, lungs clear to auscultation, no wheeze, rales, rhonchi. Normal insp/exp effort, no accessory muscle use Cardiovascular: RRR, 3/6 RONEN noted at RUSB with radiation, b/l venous stasis changes noted, +1 pedal pulse b/l Vessels: no JVD or carotid bruit Chest: normal inspection of chest Abdomen: normal bowel sounds, soft, nontender Musculoskeletal: Significant weakness in right lower extremity and right upper extremity Skin: no rashes, warm and dry normal turgor, venous stasis changes LEs Neuro/psych: alert and oriented and answers questions appropriately, but slowly and speech is slurred. raises eyebrows b/l, puffs cheeks, but smile is asymmetric. Significant weakness in right lower extremity and right upper extremity. She can move LLE and LUE without difficulty. No sensory loss noted. Results & Data Results & Data ([facility]) Vital Signs (Past 12 Hours) Vital Signs Temp Pulse Pulse Pulse Resp BP Pulse Ox 12/19/19 08:00 90 12/19/19 07:21 36.7 C 84 20 167/89 H 94 12/19/19 04:00 183/94 H 12/19/19 03:37 36.6 C 64 18 183/94 H 96 12/19/19 00:00 194/98 H 12/18/19 23:24 36.9 C 68 18 194/98 H 96 Laboratory Results 12/19/19 12/19/19 12/19/19 Range/Units 07:26 05:20 05:20 WBC 6.78 (4.8-10.8) K/uL RBC 5.23 (4.2-5.4) M/uL Hgb 15.3 (12.0-16.0) g/dL Hct 45.5 (37-47) % MCV 87.0 (80-100) fL MCH 29.3 (25-34) pg MCHC 33.6 (32-36) g/dL RDW Std Deviation 43.7 (36.4-46.3) fL RDW Coeff of Eliza 13.7 (11.5-14.5) % Plt Count 246 (130-400) K/uL MPV 10.5 H (7.4-10.4) fL Immature Gran % (Auto) 0.1 % Neut % (Auto) 70.4 % Lymph % (Auto) 19.3 % Bea[place]gard % (Auto) 7.8 % Eos % (Auto) 2.4 % Baso % (Auto) 0.0 % Neut # (Auto) 4.77 (1.4-6.5) K/uL Lymph # (Auto) 1.31 (1.2-3.4) K/uL Bea[place]gard # (Auto) 0.53 (0.11-0.59) K/uL Eos # (Auto) 0.16 (0-0.5) K/uL Baso # (Auto) 0.00 (0-0.2) K/uL Immature Gran # (Auto) 0.01 (0.00-0.02) K/uL Sodium 141 (136-145) mmol/L Potassium 3.7 (3.5-5.1) mmol/L Chloride 111 H (98-107) mmol/L Carbon Dioxide 23 (21-32) mmol/L Anion Gap 7.0 (3-11) BUN 18 (7-18) mg/dl Creatinine 0.86 (0.6-1.2) mg/dl Est Cr Clr Drug Dosing 60.5 ml/min Est GFR ( Amer) 73.4 Est GFR (Non-Af Amer) 63.4 BUN/Creatinine Ratio 21.1 H (10-20) Glucose 160 H (70-99) mg/dl POC Glucose 145 H (70-99) mg/dl Calcium 8.4 L (8.5-10.1) mg/dl Phosphorus 2.8 (2.5-4.9) mg/dl Magnesium 2.3 (1.8-2.4) mg/dl 12/18/19 12/18/19 12/18/19 Range/Units 20:01 16:12 11:38 WBC (4.8-10.8) K/uL RBC (4.2-5.4) M/uL Hgb (12.0-16.0) g/dL Hct (37-47) % MCV (80-100) fL MCH (25-34) pg MCHC (32-36) g/dL RDW Std Deviation (36.4-46.3) fL RDW Coeff of Eliza (11.5-14.5) % Plt Count (130-400) K/uL MPV (7.4-10.4) fL Immature Gran % (Auto) % Neut % (Auto) % Lymph % (Auto) % [place] % (Auto) % Eos % (Auto) % Baso % (Auto) % Neut # (Auto) (1.4-6.5) K/uL Lymph # (Auto) (1.2-3.4) K/uL [place]gard # (Auto) (0.11-0.59) K/uL Eos # (Auto) (0-0.5) K/uL Baso # (Auto) (0-0.2) K/uL Immature Gran # (Auto) (0.00-0.02) K/uL Sodium (136-145) mmol/L Potassium (3.5-5.1) mmol/L Chloride (98-107) mmol/L Carbon Dioxide (21-32) mmol/L Anion Gap (3-11) BUN (7-18) mg/dl Creatinine (0.6-1.2) mg/dl Est Cr Clr Drug Dosing ml/min Est GFR ( Amer) Est GFR (Non-Af Amer) BUN/Creatinine Ratio (10-20) Glucose (70-99) mg/dl POC Glucose 126 H 107 H 194 H (70-99) mg/dl Calcium (8.5-10.1) mg/dl Phosphorus (2.5-4.9) mg/dl Magnesium (1.8-2.4) mg/dl 12/18/19 Range/Units 07:28 WBC (4.8-10.8) K/uL RBC (4.2-5.4) M/uL Hgb (12.0-16.0) g/dL Hct (37-47) % MCV (80-100) fL MCH (25-34) pg MCHC (32-36) g/dL RDW Std Deviation (36.4-46.3) fL RDW Coeff of Eliza (11.5-14.5) % Plt Count (130-400) K/uL MPV (7.4-10.4) fL Immature Gran % (Auto) % Neut % (Auto) % Lymph % (Auto) % [place] % (Auto) % Eos % (Auto) % Baso % (Auto) % Neut # (Auto) (1.4-6.5) K/uL Lymph # (Auto) (1.2-3.4) K/uL [place]gard # (Auto) (0.11-0.59) K/uL Eos # (Auto) (0-0.5) K/uL Baso # (Auto) (0-0.2) K/uL Immature Gran # (Auto) (0.00-0.02) K/uL Sodium (136-145) mmol/L Potassium (3.5-5.1) mmol/L Chloride (98-107) mmol/L Carbon Dioxide (21-32) mmol/L Anion Gap (3-11) BUN (7-18) mg/dl Creatinine (0.6-1.2) mg/dl Est Cr Clr Drug Dosing ml/min Est GFR ( Amer) Est GFR (Non-Af Amer) BUN/Creatinine Ratio (10-20) Glucose (70-99) mg/dl POC Glucose 150 H (70-99) mg/dl Calcium (8.5-10.1) mg/dl Phosphorus (2.5-4.9) mg/dl Magnesium (1.8-2.4) mg/dl Medications Administered Current Inpatient Medications Aspirin (Ecotrin Ectab) 81 mg PO QAM [facility] Stop: 01/17/20 08:59 Last Admin: 12/19/19 08:17 Dose: 81 mg Documented by: Atorvastatin Calcium (Lipitor) 80 mg PO QAM [facility] Stop: 01/17/20 09:59 Last Admin: 12/19/19 08:16 Dose: 80 mg Documented by: Carvedilol (Coreg) 6.25 mg PO BID [facility] Stop: 01/17/20 20:59 Last Admin: 12/19/19 08:16 Dose: 6.25 mg Documented by: [facility]id[facility] ([facility]: 01/17/20 08:59 Last Admin: 12/19/19 08:17 Dose: 75 mg Documented by: Dextrose (Dextrose 50%) 25 - 50 ml IV UD PRN; Protocol PRN Reason: Hypoglycemia Protocol Stop: 01/16/20 16:30 Glucagon (Glucagen) 1 mg SQ UD PRN; Protocol PRN Reason: Hypoglycemia Protocol Stop: 01/16/20 16:30 Glucose (Dex4 Glucose) 4 - 8 tabs PO UD PRN; Protocol PRN Reason: Hypoglycemia Protocol Stop: 01/16/20 16:30 Glucose (Glucose 40%) 15 - 30 gm PO UD PRN; Protocol PRN Reason: Hypoglycemia Protocol Stop: 01/16/20 16:30 Hydralazine HCl (Apresoline) 25 mg PO Q8 [facility] Stop: 01/18/20 05:59 Last Admin: 12/19/19 05:48 Dose: 25 mg Documented by: Hydralazine HCl (Hydralazine Hcl) 5 mg IV Q6H PRN PRN Reason: hypertension Stop: 01/17/20 23:32 Last Admin: 12/19/19 00:33 Dose: 5 mg Documented by: Insulin Aspart (Novolog Flexpen) 0 units SC ACHS [facility] Stop: 01/16/20 16:30 Last Admin: 12/19/19 08:15 Dose: 2 units Documented by: Labetalol HCl (Normodyne) 10 mg IV Q6H PRN PRN Reason: hypertension Stop: 01/16/20 16:30 Last Admin: 12/17/19 18:04 Dose: 10 mg Documented by: Miscellaneous (Carbohydrates For Hypoglycemia) 15 - 30 gm PO UD PRN PRN Reason: Hypoglycemia Protocol Stop: 01/16/20 16:30 Miscellaneous Information (Pharmacist Discharge Med Rec Consult) 1 ea N/A UD PRN PRN Reason: Consult Stop: 01/16/20 16:30 Potassium Chloride (Klor-Con M20) 40 meq PO NOW STA Stop: 12/19/19 10:46
[2019-12-20 06:19] LABS: Basophils # (auto) 0.01 K/uL (0-0.2); Basophils % (auto) 0.1 %; Eosinophils # (auto) 0.16 K/uL (0-0.5); Eosinophils % (auto) 2.1 %; Hematocrit (blood only) 47.5 % (37-47); Hemoglobin 16.1 g/dL (12.0-16.0); Immature Granulocytes # (auto) 0.01 K/uL (0.00-0.02); Immature Granulocytes % (auto) 0.1 %; Lymphocytes # (auto) 1.07 K/uL (1.2-3.4); Lymphocytes % (auto) 14.2 %; Mean Corpuscular Hemoglobin 29.7 pg (25-34); Mean Corpuscular Hgb Conc 33.9 g/dL (32-36); Mean Corpuscular Volume 87.6 fL (80-100); Mean Platelet Volume 10.3 fL (7.4-10.4); Monocytes # (auto) 0.75 K/uL (0.11-0.59); Neutrophils # (auto) 5.51 K/uL (1.4-6.5); Neutrophils % (auto) 73.5 %; Platelet Count 248 K/uL (130-400); RDW Coefficient of Variation 13.9 % (11.5-14.5); RDW Standard Deviation 44.4 fL (36.4-46.3); Red Blood Count 5.42 M/uL (4.2-5.4); White Blood Count 7.51 K/uL (4.8-10.8)
[2019-12-20 06:53] LABS: BUN Creatinine Ratio 21.8 (10-20); Calcium 8.5 mg/dl (8.5-10.1); Creatinine Clr Calc Pharmacy 56.9 ml/min; Est GFR (African American) 68.6; Est GFR (Non-African American) 59.2
[2019-12-20] MEDS: carvediloL 6.25 MG TAB PO SCH (08:53)
[2019-12-20] MEDS: CLOPIDOGREL BISULFATE 75 MG TAB PO SCH (08:53)
[2019-12-20] MEDS: ASPIRIN 81 MG ECTAB PO SCH (08:53)
[2019-12-20] MEDS: INSULIN ASPART 100 UNITS/ML 3 ML PEN SC SCH ×4 (08:54→21:13)
[2019-12-20] MEDS: ATORVASTATIN 40 MG TAB PO SCH (08:54)
[2019-12-20] MEDS ORDERED: AMLODIPINE BESYLATE 5 MG TAB PO SCH (09:00)
--- NOTE | 2019-12-20 09:23 | Hospitalist Progress Note ---
Date of Service December 20, 2019 Assessment & Plan (1) CVA (cerebral vascular accident): (2) Hypertensive emergency: This is an 79-year-old female who has significant past medical history of cerebrovascular disease, T2DM, HTN, HLD, PAD, carotid artery disease, hypothyroidism who presents to ED secondary to strokelike symptoms (slurred speech, RLE weakness) x3 to 4 days. In ED patient was significantly hypertensive with blood pressure 250/114. In ED she received hydralazine 10 mg IV with minimal improvement. 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 Severe stenosis noted in the bilateral MCAs. Head CT: No significant change compared to the prior study. No acute intracranial abnormality. Labetalol 20mg IV x 1 stat and q6h prn SBP > 220 DBP > 110 NPO until seen and eval by speech pt does not meet criteria for TPA wishes for medical management only Pt refusing MRI, repeated CT w/o contrast in a.m. - no change from prior CT noted DNR/DNI PT/ST/OT - recommend rehab 300mg ASA HI given on admission ASA 81mg daily and plavix 75mg, atorvastatin 80mg neurology consulted echocardiogram ordered (last 07/23 revealed EF 65%, mildly enlarged left atrium, mild AV stenosis, severely enlarged concentric left ventricle concerns for hypertrophic cardiomyopathy -has not been evaluated by cards as outpatient) Current echo shows no ASD fasting lipid panel obtained LDL 248, HbA1c 7.3% Speech eval, currently on minced and moist diet, radiology swallow study ordered for Saturday/tomorrow (3) Cerebral vascular disease: CTA head revealed Severe multifocal stenoses within the intracranial vessels, with severe stenosis to the b/l MCAs pt with overall poor skilled nursing prognosis given severity of stenosis with likely recurrent stroke like sx wishes for non aggressive measures, opts for med management ASA, add plavix and atorvastatin neuro consulted (4) Diabetes: last a1c 7.5 06/27/19 hold metformin repeat a1c 7.3% novolog insulin sliding scale per protocol (5) HTN (hypertension): on coreg as outpt treat of htn emergency as above permissive HTN (6) Carotid artery disease: CTA neck: 1. Moderate plaque formation throughout the carotid bifurcations. 2. 30% narrowing of the carotid bifurcations and proximal internal carotid arteries bilaterally. 3. Multifocal 50% narrowing of the left vertebral artery as described. Pt on ASA, adding plavix previously has been on statin in past - she is unsure why she stopped obtained fasting lipid panel, LDL 248 started atorvastatin 80mg (7) Hypothyroidism: continue levothyroxine (8) DVT prophylaxis: SCD/TEDs for now Disposition: admit to PCU Follow up: PCP Dr. Perez upon discharge Admission and Anticipated Discharge Date Admission Date: December 17, 2019 Subjective Pt is sitting up in bed, in NAD. No fever, chills, chest pain, shortness of breath, abd. pain. Significant weakness in RLE, and also in RUE, also some facial weakness. Speech seems to be better today. Patient also developed urinary incontinence, and urinary retention, required straight cath x2. Radiology swallow study scheduled for tomorrow. Discussed weakness with neurology, again recommend MRI if declined by patient, CT of the head. Will reevaluate patient today. Discussed with the patient, patient declines MRI of head/brain. Review of Systems Review of Systems: All systems reviewed & are unremarkable except as noted in HPI & below Constitutional: no fever and no chills Respiratory: no cough and no dyspnea Cardiovascular: no chest pain and no palpitations Gastrointestinal: no abdominal pain, no nausea and no vomiting Neurologic: + abnormal speech (Seems improved today) Right-sided weakness Physical Exam Physical Exam: Constitutional: WD/WN, elderly, F, in NAD, sitting up in bed, answers questions appropriately Head: Normocephalic, Atraumatic Eyes: PERRL, conjunctivae normal, anicteric sclerae ENMT: external ear and nose normal, oropharynx normal Neck: trachea midline, no thyromegaly normal visual inspection Respiratory: normal respiratory effort, lungs clear to auscultation, no wheeze, rales, rhonchi. Normal insp/exp effort, no accessory muscle use Cardiovascular: RRR, 3/6 RONEN noted at RUSB with radiation, b/l venous stasis changes noted, +1 pedal pulse b/l Vessels: no JVD or carotid bruit Chest: normal inspection of chest Abdomen: normal bowel sounds, soft, nontender Musculoskeletal: Significant weakness in right lower extremity and right upper extremity Skin: no rashes, warm and dry normal turgor, venous stasis changes LEs Neuro/psych: alert and oriented and answers questions appropriately, but slowly and speech is slurred (however seems little better today). raises eyebrows b/l, puffs cheeks, but smile is somewhat asymmetric. Significant weakness in right lower extremity and right upper extremity. She can move LLE and LUE without difficulty. No sensory loss noted. Results & Data Results & Data ([facility] [place]) Vital Signs (Past 12 Hours) Vital Signs Temp Pulse Resp BP Pulse Ox 12/20/19 06:58 36.9 C 84 18 187/80 H 92 12/20/19 04:00 165/77 H 12/20/19 03:58 36.6 C 80 17 165/77 H 95 12/20/19 00:00 122/73 12/19/19 23:23 37.1 C 82 18 122/73 95 Laboratory Results 12/20/19 12/20/19 12/20/19 Range/Units 07:08 05:44 05:44 WBC 7.51 (4.8-10.8) K/uL RBC 5.42 H (4.2-5.4) M/uL Hgb 16.1 H (12.0-16.0) g/dL Hct 47.5 H (37-47) % MCV 87.6 (80-100) fL MCH 29.7 (25-34) pg MCHC 33.9 (32-36) g/dL RDW Std Deviation 44.4 (36.4-46.3) fL RDW Coeff of Eliza 13.9 (11.5-14.5) % Plt Count 248 (130-400) K/uL MPV 10.3 (7.4-10.4) fL Immature Gran % (Auto) 0.1 % Neut % (Auto) 73.5 % Lymph % (Auto) 14.2 % [place] % (Auto) 10.0 % Eos % (Auto) 2.1 % Baso % (Auto) 0.1 % Neut # (Auto) 5.51 (1.4-6.5) K/uL Lymph # (Auto) 1.07 L (1.2-3.4) K/uL [place] # (Auto) 0.75 H (0.11-0.59) K/uL Eos # (Auto) 0.16 (0-0.5) K/uL Baso # (Auto) 0.01 (0-0.2) K/uL Immature Gran # (Auto) 0.01 (0.00-0.02) K/uL Sodium 142 (136-145) mmol/L Potassium 4.0 (3.5-5.1) mmol/L Chloride 114 H (98-107) mmol/L Carbon Dioxide 19 L (21-32) mmol/L Anion Gap 9.0 (3-11) BUN 20 H (7-18) mg/dl Creatinine 0.91 (0.6-1.2) mg/dl Est Cr Clr Drug Dosing 56.9 ml/min Est GFR ( Amer) 68.6 Est GFR (Non-Af Amer) 59.2 BUN/Creatinine Ratio 21.8 H (10-20) Glucose 177 H (70-99) mg/dl POC Glucose 162 H (70-99) mg/dl Calcium 8.5 (8.5-10.1) mg/dl 12/19/19 12/19/19 12/19/19 Range/Units 20:18 16:34 11:39 WBC (4.8-10.8) K/uL RBC (4.2-5.4) M/uL Hgb (12.0-16.0) g/dL Hct (37-47) % MCV (80-100) fL MCH (25-34) pg MCHC (32-36) g/dL RDW Std Deviation (36.4-46.3) fL RDW Coeff of Eliza (11.5-14.5) % Plt Count (130-400) K/uL MPV (7.4-10.4) fL Immature Gran % (Auto) % Neut % (Auto) % Lymph % (Auto) % [place] % (Auto) % Eos % (Auto) % Baso % (Auto) % Neut # (Auto) (1.4-6.5) K/uL Lymph # (Auto) (1.2-3.4) K/uL [place] # (Auto) (0.11-0.59) K/uL Eos # (Auto) (0-0.5) K/uL Baso # (Auto) (0-0.2) K/uL Immature Gran # (Auto) (0.00-0.02) K/uL Sodium (136-145) mmol/L Potassium (3.5-5.1) mmol/L Chloride (98-107) mmol/L Carbon Dioxide (21-32) mmol/L Anion Gap (3-11) BUN (7-18) mg/dl Creatinine (0.6-1.2) mg/dl Est Cr Clr Drug Dosing ml/min Est GFR ( Amer) Est GFR (Non-Af Amer) BUN/Creatinine Ratio (10-20) Glucose (70-99) mg/dl POC Glucose 137 H 118 H 137 H (70-99) mg/dl Calcium (8.5-10.1) mg/dl Medications Administered Current Inpatient Medications Amlodip[facility]) [facility] [place] Stop: 01/19/20 08:59 Last Admin: 12/20/19 08:53 Dose: 2.5 mg Documented by: Aspirin (Ecotrin Ectab) 81 mg PO QAM [facility] Stop: 01/17/20 08:59 Last Admin: 12/20/19 08:53 Dose: 81 mg Documented by: Atorvastatin Calcium (Lipitor) 80 [facility] [place] Stop: 01/17/20 09:59 Last Admin: 12/20/19 08:54 Dose: 80 mg Documented by: Carvedilol (Coreg) 6.25 mg PO BID [facility] Stop: 01/17/20 20:59 Last Admin: 12/20/19 08:53 Dose: 6.25 mg Documented by: Clopidogrel Bisulfate (Plavix) 75 mg PO QAM [facility] Stop: 01/17/20 08:59 Last Admin: 12/20/19 08:53 Dose: 75 mg Documented by: Dextrose (Dextrose 50%) 25 - 50 ml IV UD PRN; Protocol PRN Reason: Hypoglycemia Protocol Stop: 01/16/20 16:30 Glucagon (Glucagen) 1 mg SQ UD PRN; Protocol PRN Reason: Hypoglycemia Protocol Stop: 01/16/20 16:30 Glucose (Dex4 Glucose) 4 - 8 tabs PO UD PRN; Protocol PRN Reason: Hypoglycemia Protocol Stop: 01/16/20 16:30 Glucose (Glucose 40%) 15 - 30 gm PO UD PRN; Protocol PRN Reason: Hypoglycemia Protocol Stop: 01/16/20 16:30 Hydralazine HCl (Apresoline) 25 mg PO Q8 [facility] Stop: 01/18/20 05:59 Last Admin: 12/20/19 04:54 Dose: 25 mg Documented by: Hydralazine HCl (Hydralazine Hcl) 5 mg IV Q6H PRN PRN Reason: hypertension Stop: 01/17/20 23:32 Last Admin: 12/19/19 00:33 Dose: 5 mg Documented by: Insulin Aspart (Novolog Flexpen) 0 units SC ACHS [facility] Stop: 01/16/20 16:30 Last Admin: 12/20/19 08:54 Dose: 2 units Documented by: Labetalol HCl (Normodyne) 10 mg IV Q6H PRN PRN Reason: hypertension Stop: 01/16/20 16:30 Last Admin: 12/17/19 18:04 Dose: 10 mg Documented by: Miscellaneous (Carbohydrates For Hypoglycemia) 15 - 30 gm PO UD PRN PRN Reason: Hypoglycemia Protocol Stop: 01/16/20 16:30 Miscellaneous Information (Pharmacist Discharge Med Rec Consult) 1 ea N/A UD PRN PRN Reason: Consult Stop: 01/16/20 16:30
--- NOTE | 2019-12-20 10:27 | CT Scan Report ---
HEAD CT NONCONTRAST CT DOSE: 614.27 mGy.cm HISTORY: Slurred speech. Weakness. follow up stroke TECHNIQUE: Multiaxial CT images of the head were performed without the use of intravenous contrast. A utomated exposure control was utilized for this study. A dose lowering technique was utilized adheri ng to the principles of ALARA. Comparison: Head CT 10/29/2016. Findings: Small retention cyst within the right maxillary sinus. A 1 cm slightly dense nodule within the right sphenoid sinus. This remains stable may represent a small polyp or calcified retention cyst . The calvarium and skull base are intact. The ventricles and sulci demonstrate mild age-related invo lutional changes. Mild periventricular white matter hypodensity is nonspecific but favor microvascula r ischemic change. This is also unchanged.. There is no hematoma, midline shift, or acute infarct. St able extra-axial calcification at the right high convexity which likely represents a meningioma. Old punctate lacunar infarcts within the right basal ganglia. Wedge-shaped hypodensity within the mid osiel s may be artifact. Impression: No significant change compared to the prior study. No acute intracranial abnormality. Wedge-shaped hy podensity at the mid mercedes may represent artifact. This bears watching on future examinations to exclu de the possibility of a subacute/chronic infarct. ACT 112: Negative or not required by law. Electronically signed by: Ed Eastman M.D. 12/20/2019 10:26 AM
[2019-12-20] MEDS: SODIUM CHLORIDE 0.9% 1000ML 1,000 ML IV SCH ×2 (12:43→19:46)
[2019-12-20] MEDS: HydrALAZINE 10 MG TAB PO SCH ×2 (13:56→20:46)
--- NOTE | 2019-12-20 14:13 | Progress Notes ---
DATE: 12/20/2019 SUBJECTIVE: I am seeing the patient in followup. Dr. Lynne asked me to stop by and see her. She was admitted with some right-sided weakness and it sounds like there was some fluctuation. She has been apparently fairly weak since the . Followup scans have showed no new infarct and the patient has refused MRI. Her CTA of the neck showed moderate plaque formation and bilateral carotid bifurcations. A 30% narrowing in the carotid bifurcations and proximal internal carotids bilaterally. Multifocal 50% narrowing of left vertebral artery. CTA of the head, severe multifocal stenosis within the intracranial vessels, multiple tiny 2 mm right ICA terminus aneurysms. Labs today notable for an H and H of 16.1/47.5. BUN, glucose 177. CT of the head, which I have reviewed, possibly shows a wedge-shaped hypodensity in the mid mercedes versus artifact. OBJECTIVE: The patient is awake and alert, oriented. No right/left confusion or aphasia. Pupils are equal. There are normal visual tran, normal motility. There is a mild flattening of the right nasolabial fold. Tongue is midline. Right upper extremity, only proximal right shoulder shrug. Right lower extremity about 1+ and gastroc would be about 2+. Reflexes symmetric. Toes downgoing. No sensory loss. Speech is spastically dysarthric. IMPRESSION AND PLAN: Suspect brainstem infarction. The patient has fluctuated initially but by report has been about the same over the last several days. It would be helpful for the patient to have an MRI, but she categorically declines due to claustrophobia even with sedation. As an overall plan, I would recommend that you allow her blood pressure to run fairly high, as high as 200/100 provided she is not symptomatic from a cardiovascular perspective. I would give her some IV fluids. There is some evidence of hemoconcentration. I would continue dual antiplatelet therapy, statin therapy. We will follow with you. KATLYND
[2019-12-20] MEDS: carvediloL 3.125 MG TAB PO SCH (19:47)
[2019-12-21] MEDS: HydrALAZINE HCL 20 MG/ML VIAL IV PRN (03:05)
[2019-12-21] MEDS: SODIUM CHLORIDE 0.9% 1000ML 1,000 ML IV SCH (03:10)
[2019-12-21] MEDS: HydrALAZINE 10 MG TAB PO SCH ×3 (05:39→22:05)
[2019-12-21 06:01] LABS: Hematocrit (blood only) 46.6 % (37-47); Hemoglobin 15.7 g/dL (12.0-16.0); Mean Corpuscular Hemoglobin 29.3 pg (25-34); Mean Corpuscular Hgb Conc 33.7 g/dL (32-36); Mean Corpuscular Volume 87.1 fL (80-100); Mean Platelet Volume 10.3 fL (7.4-10.4); Platelet Count 212 K/uL (130-400); RDW Coefficient of Variation 13.8 % (11.5-14.5); RDW Standard Deviation 43.5 fL (36.4-46.3); Red Blood Count 5.35 M/uL (4.2-5.4); White Blood Count 9.61 K/uL (4.8-10.8)
[2019-12-21 06:47] LABS: BUN Creatinine Ratio 23.4 (10-20); Calcium 8.1 mg/dl (8.5-10.1); Creatinine Clr Calc Pharmacy 65.5 ml/min; Est GFR (African American) 81.4; Est GFR (Non-African American) 70.2; Phosphorus 2.9 mg/dl (2.5-4.9)
[2019-12-21 07:28] LABS: Potassium 3.7 mmol/L (3.5-5.1)
[2019-12-21 07:29] LABS: Magnesium 2.1 mg/dl (1.8-2.4)
[2019-12-21] MEDS: ATORVASTATIN 40 MG TAB PO SCH (08:08)
[2019-12-21] MEDS: carvediloL 3.125 MG TAB PO SCH (08:08)
[2019-12-21] MEDS: CLOPIDOGREL BISULFATE 75 MG TAB PO SCH (08:08)
[2019-12-21] MEDS: ASPIRIN 81 MG ECTAB PO SCH (08:08)
[2019-12-21] MEDS: INSULIN ASPART 100 UNITS/ML 3 ML PEN SC SCH ×4 (08:13→20:34)
--- NOTE | 2019-12-21 09:09 | Hospitalist Progress Note ---
Date of Service December 21, 2019 Assessment & Plan (1) CVA (cerebral vascular accident): (2) Hypertensive emergency: This is an 79-year-old female who has significant past medical history of cerebrovascular disease, T2DM, HTN, HLD, PAD, carotid artery disease, hypothyroidism who presents to ED secondary to strokelike symptoms (slurred speech, RLE weakness) x3 to 4 days. In ED patient was significantly hypertensive with blood pressure 250/114. In ED she received hydralazine 10 mg IV with minimal improvement. 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 Severe stenosis noted in the bilateral MCAs. Head CT: No significant change compared to the prior study. No acute intracranial abnormality. Labetalol 20mg IV x 1 stat and q6h prn SBP > 220 DBP > 110 NPO until seen and eval by speech pt does not meet criteria for TPA wishes for medical management only Pt refusing MRI, repeated CT w/o contrast in a.m. - no change from prior CT noted DNR/DNI PT/ST/OT - recommend rehab 300mg ASA AL given on admission ASA 81mg daily and plavix 75mg, atorvastatin 80mg neurology consulted echocardiogram ordered (last 07/23 revealed EF 65%, mildly enlarged left atrium, mild AV stenosis, severely enlarged concentric left ventricle concerns for hypertrophic cardiomyopathy -has not been evaluated by cards as outpatient) Current echo shows no ASD fasting lipid panel obtained LDL 248, HbA1c 7.3% Speech eval, currently on minced and moist diet, radiology swallow study ordered for Saturday/tomorrow (3) Cerebral vascular disease: CTA head revealed Severe multifocal stenoses within the intracranial vessels, with severe stenosis to the b/l MCAs pt with overall poor alf prognosis given severity of stenosis with likely recurrent stroke like sx wishes for non aggressive measures, opts for med management ASA, add plavix and atorvastatin neuro consulted (4) Diabetes: last a1c 7.5 06/27/19 hold metformin repeat a1c 7.3% novolog insulin sliding scale per protocol (5) HTN (hypertension): on coreg as outpt treat of htn emergency as above permissive HTN (6) Carotid artery disease: CTA neck: 1. Moderate plaque formation throughout the carotid bifurcations. 2. 30% narrowing of the carotid bifurcations and proximal internal carotid arteries bilaterally. 3. Multifocal 50% narrowing of the left vertebral artery as described. Pt on ASA, adding plavix previously has been on statin in past - she is unsure why she stopped obtained fasting lipid panel, LDL 248 started atorvastatin 80mg (7) Hypothyroidism: continue levothyroxine (8) DVT prophylaxis: SCD/TEDs for now Disposition: admit to PCU Follow up: PCP Dr. Perez upon discharge and neurology (Dr. Lehman or Arely) Admission and Anticipated Discharge Date Admission Date: December 17, 2019 Subjective Pt is sitting up in bed, in NAD. No fever, chills, chest pain, shortness of breath, abd. pain. Significant weakness in RLE, and also in RUE, also some facial weakness. Speech seems to be better today. Radiology swallow study done today, does not show aspiration. Discussed weakness with neurology, again recommend MRI. Discussed with the patient, patient declines MRI of head/brain. Review of Systems Neurologic: + abnormal speech (Seems improved today) Right-sided weakness Physical Exam Physical Exam: Constitutional: WD/WN, elderly, F, in NAD, sitting up in bed, answers questions appropriately Head: Normocephalic, Atraumatic Eyes: PERRL, conjunctivae normal, anicteric sclerae ENMT: external ear and nose normal, oropharynx normal Neck: trachea midline, no thyromegaly normal visual inspection Respiratory: normal respiratory effort, lungs clear to auscultation, no wheeze, rales, rhonchi. Normal insp/exp effort, no accessory muscle use Cardiovascular: RRR, 3/6 RONEN noted at RUSB with radiation, b/l venous stasis changes noted, +1 pedal pulse b/l Vessels: no JVD or carotid bruit Chest: normal inspection of chest Abdomen: normal bowel sounds, soft, nontender Musculoskeletal: Significant weakness in right lower extremity and right upper extremity Skin: no rashes, warm and dry normal turgor, venous stasis changes LEs Neuro/psych: alert and oriented and answers questions appropriately, but slowly and speech is slurred (however seems little better today). raises eyebrows b/l, puffs cheeks, but smile is somewhat asymmetric. Significant weakness in right lower extremity and right upper extremity. She can move LLE and LUE without difficulty. No sensory loss noted. Results & Data Results & Data ([facility]) Vital Signs (Past 12 Hours) Vital Signs Temp Pulse Pulse Resp BP Pulse Ox 12/21/19 08:00 84 170/98 H 12/21/19 07:11 36.7 C 83 19 190/70 H 95 12/21/19 04:00 202/96 H 12/21/19 03:03 36.6 C 78 16 202/96 H 94 12/21/19 00:00 181/80 H 12/20/19 23:33 36.7 C 90 16 181/80 H 92 Laboratory Results 12/21/19 12/21/19 12/21/19 Range/Units 07:06 07:01 05:35 WBC (4.8-10.8) K/uL RBC (4.2-5.4) M/uL Hgb (12.0-16.0) g/dL Hct (37-47) % MCV (80-100) fL MCH (25-34) pg MCHC (32-36) g/dL RDW Std Deviation (36.4-46.3) fL RDW Coeff of Eliza (11.5-14.5) % Plt Count (130-400) K/uL MPV (7.4-10.4) fL Sodium 142 (136-145) mmol/L Potassium 3.7 (3.5-5.1) mmol/L Chloride 114 H (98-107) mmol/L Carbon Dioxide 21 (21-32) mmol/L Anion Gap 7.0 (3-11) BUN 19 H (7-18) mg/dl Creatinine 0.79 (0.6-1.2) mg/dl Est Cr Clr Drug Dosing 65.5 ml/min Est GFR ( Amer) 81.4 Est GFR (Non-Af Amer) 70.2 BUN/Creatinine Ratio 23.4 H (10-20) Glucose 149 H (70-99) mg/dl POC Glucose 136 H (70-99) mg/dl Calcium 8.1 L (8.5-10.1) mg/dl Phosphorus 2.9 (2.5-4.9) mg/dl Magnesium 2.1 (1.8-2.4) mg/dl 12/21/19 12/20/19 12/20/19 Range/Units 05:35 20:45 16:01 WBC 9.61 (4.8-10.8) K/uL RBC 5.35 (4.2-5.4) M/uL Hgb 15.7 (12.0-16.0) g/dL Hct 46.6 (37-47) % MCV 87.1 (80-100) fL MCH 29.3 (25-34) pg MCHC 33.7 (32-36) g/dL RDW Std Deviation 43.5 (36.4-46.3) fL RDW Coeff of Eliza 13.8 (11.5-14.5) % Plt Count 212 (130-400) K/uL MPV 10.3 (7.4-10.4) fL Sodium (136-145) mmol/L Potassium (3.5-5.1) mmol/L Chloride (98-107) mmol/L Carbon Dioxide (21-32) mmol/L Anion Gap (3-11) BUN (7-18) mg/dl Creatinine (0.6-1.2) mg/dl Est Cr Clr Drug Dosing ml/min Est GFR ( Amer) Est GFR (Non-Af Amer) BUN/Creatinine Ratio (10-20) Glucose (70-99) mg/dl POC Glucose 132 H 120 H (70-99) mg/dl Calcium (8.5-10.1) mg/dl Phosphorus (2.5-4.9) mg/dl Magnesium (1.8-2.4) mg/dl 12/20/19 Range/Units 11:04 WBC (4.8-10.8) K/uL RBC (4.2-5.4) M/uL Hgb (12.0-16.0) g/dL Hct (37-47) % MCV (80-100) fL MCH (25-34) pg MCHC (32-36) g/dL RDW Std Deviation (36.4-46.3) fL RDW Coeff of Eliza (11.5-14.5) % Plt Count (130-400) K/uL MPV (7.4-10.4) fL Sodium (136-145) mmol/L Potassium (3.5-5.1) mmol/L Chloride (98-107) mmol/L Carbon Dioxide (21-32) mmol/L Anion Gap (3-11) BUN (7-18) mg/dl Creatinine (0.6-1.2) mg/dl Est Cr Clr Drug Dosing ml/min Est GFR ( Amer) Est GFR (Non-Af Amer) BUN/Creatinine Ratio (10-20) Glucose (70-99) mg/dl POC Glucose 138 H (70-99) mg/dl Calcium (8.5-10.1) mg/dl Phosphorus (2.5-4.9) mg/dl Magnesium (1.8-2.4) mg/dl
--- NOTE | 2019-12-21 10:38 | Fluoroscopy Report ---
FL video swallow CLINICAL HISTORY: 79 years-old Female with ? aspiration of thin liquids post CVA. Possible aspiratio n TECHNIQUE: Video fluoroscopic evaluation of swallowing was performed in the AP and lateral projection s by the speech pathology staff. The patient is fed thin liquid, nectar thick and pudding consistenci es along with cracker and barium paste. FLUOROSCOPY TIME: 2.7 minutes. COMPARISON STUDY: Chest radiograph 12/17/2019 FINDINGS: Penetration without aspiration noted with thin liquid barium. Prolonged mastication and pro longed oropharyngeal transit with solid consistencies. IMPRESSION: 1. Penetration without aspiration. 2. Please see the speech pathologist report for detailed findings and recommendations. ACT 112: Negative or not required by law. Electronically signed by: Rodney Castillo M.D. 12/21/2019 10:37 AM
--- NOTE | 2019-12-21 18:40 | Progress Notes ---
DATE: 12/21/2019 SUBJECTIVE: I am seeing the patient in followup of what is most likely a brainstem infarction. She feels unchanged to improved. OBJECTIVE: VITAL SIGNS: Blood pressure has been modestly high most recently 177/102 with a mean arterial pressure of 139, 36.7, 92 18. GENERAL: The patient is awake and alert. Normal extraocular motility. No field cut. Mild to moderate flattening of the right nasolabial fold, spastic dysarthria. There is minor activation of the biceps. There is some shoulder shrugs and there is some minor activation in the right lower extremity. Sensation is intact to light touch. IMPRESSION: Presumed brainstem infarction. The patient has declined MRI brain. Consider repeat CT of the head in 1 week. Continue supportive therapy with antiplatelet therapy. Gradual reduction in blood pressure is advised. We will sign off. The patient should see either myself or Dr. Lehman in the office post discharge.
[2019-12-21] MEDS: carvediloL 6.25 MG TAB PO SCH (20:13)
[2019-12-22] MEDS: HydrALAZINE 10 MG TAB PO SCH (06:08)
[2019-12-22] MEDS: ATORVASTATIN 40 MG TAB PO SCH (08:14)
[2019-12-22] MEDS: carvediloL 6.25 MG TAB PO SCH (08:14)
[2019-12-22] MEDS: ASPIRIN 81 MG ECTAB PO SCH (08:14)
[2019-12-22] MEDS: CLOPIDOGREL BISULFATE 75 MG TAB PO SCH (08:14)
[2019-12-22] MEDS: INSULIN ASPART 100 UNITS/ML 3 ML PEN SC SCH ×2 (08:24→11:56)
--- NOTE | 2019-12-22 12:51 | Hospitalist Progress Note ---
Date of Service December 22, 2019 Assessment & Plan (1) CVA (cerebral vascular accident): (2) Hypertensive emergency: This is an 79-year-old female who has significant past medical history of cerebrovascular disease, T2DM, HTN, HLD, PAD, carotid artery disease, hypothyroidism who presents to ED secondary to strokelike symptoms (slurred speech, RLE weakness) x3 to 4 days. In ED patient was significantly hypertensive with blood pressure 250/114. In ED she received hydralazine 10 mg IV with minimal improvement. 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 Severe stenosis noted in the bilateral MCAs. Head CT: No significant change compared to the prior study. No acute intracranial abnormality. Labetalol 20mg IV x 1 stat and q6h prn SBP > 220 DBP > 110 pt does not meet criteria for TPA wishes for medical management only Pt refusing MRI, repeated CT w/o contrast in a.m. - no change from prior CT noted, another CT head obtained on December 19, did not show significant change, shows a wedge shaped hypodensity at the mid mercedes, which may represent artifact. This bears watching on future examinations to exclude the possibility of a sub- acute/chronic infarct. Neurology recommends repeat CT head in 1 week after discharge DNR/DNI PT/ST/OT - recommend rehab 300mg ASA PA given on admission ASA 81mg daily and plavix 75mg, atorvastatin 80mg Neurology consulted - follow-up with neurology, Dr. Lehman or Dr. Rosen after discharge echocardiogram ordered (last 07/23 revealed EF 65%, mildly enlarged left atrium, mild AV stenosis, severely enlarged concentric left ventricle concerns for hypertrophic cardiomyopathy -has not been evaluated by cards as outpatient) Current echo shows no ASD, LV normal in size. Severe concentric LVH. LV wall motion is normal. EF 55 to 60%. Grade 1 diastolic dysfunction. Aortic valve sclerosis moderate, without significant aortic valve stenosis. No interatrial shunt, no ASD. Fasting lipid panel obtained LDL 248, HbA1c 7.3% Speech eval, currently on minced and moist diet, radiology swallow study obtained, does not show aspiration (3) Cerebral vascular disease: CTA head revealed Severe multifocal stenoses within the intracranial vessels, with severe stenosis to the b/l MCAs pt with overall poor intermodal customer service prognosis given severity of stenosis with likely recurrent stroke like sx wishes for non aggressive measures, opts for med management Patient declined MRI on multiple occasions. ASA, add plavix and atorvastatin Neurology consulted (4) Diabetes: last a1c 7.5 06/27/19 hold metformin repeat a1c 7.3% novolog insulin sliding scale per protocol (5) HTN (hypertension): on coreg as outpt treat of htn emergency as above permissive HTN Per neurology, gradually decrease blood pressure Patient is currently on her home Coreg P.o. hydralazine started while inpatient, continue to monitor BP (6) Carotid artery disease: CTA neck: 1. Moderate plaque formation throughout the carotid bifurcations. 2. 30% narrowing of the carotid bifurcations and proximal internal carotid arteries bilaterally. 3. Multifocal 50% narrowing of the left vertebral artery as described. Pt on ASA, added plavix previously has been on statin in past - she is unsure why she stopped obtained fasting lipid panel, LDL 248 started atorvastatin 80mg (7) Hypothyroidism: continue levothyroxine (8) DVT prophylaxis: SCD/TEDs for now Disposition: admit to PCU Follow up: PCP Dr. Perez upon discharge and neurology (Dr. Lehman or Arely) Admission and Anticipated Discharge Date Admission Date: December 17, 2019 Subjective Pt is sitting up in bed, in NAD. No fever, chills, chest pain, shortness of breath, abd. pain. Significant weakness in RLE, and also in RUE, also some facial weakness. Speech seems to be better. Radiology swallow study done yesterday, does not show aspiration. Review of Systems Review of Systems: All systems reviewed & are unremarkable except as noted in HPI & below Constitutional: no fever and no chills Respiratory: no cough and no dyspnea Cardiovascular: no chest pain and no palpitations Gastrointestinal: no abdominal pain, no nausea and no vomiting Neurologic: + abnormal speech (Seems improved today) Right-sided weakness Physical Exam Physical Exam: Constitutional: WD/WN, elderly, F, in NAD, sitting up in bed, answers questions appropriately Head: Normocephalic, Atraumatic Eyes: PERRL, conjunctivae normal, anicteric sclerae ENMT: external ear and nose normal, oropharynx normal Neck: trachea midline, no thyromegaly normal visual inspection Respiratory: normal respiratory effort, lungs clear to auscultation, no wheeze, rales, rhonchi. Normal insp/exp effort, no accessory muscle use Cardiovascular: RRR, 3/6 RONEN noted at RUSB with radiation, b/l venous stasis changes noted, +1 pedal pulse b/l Vessels: no JVD or carotid bruit Chest: normal inspection of chest Abdomen: normal bowel sounds, soft, nontender Musculoskeletal: Significant weakness in right lower extremity and right upper extremity Skin: no rashes, warm and dry normal turgor, venous stasis changes LEs Neuro/psych: alert and oriented and answers questions appropriately, but slowly and speech is slurred (however seems little better today). raises eyebrows b/l, puffs cheeks, but smile is slightly asymmetric. Significant weakness in right lower extremity and right upper extremity. She can move LLE and LUE without difficulty. No sensory loss noted. Results & Data Results & Data ([facility]) Vital Signs (Past 12 Hours) Vital Signs Temp Pulse Pulse Resp BP Pulse Ox 12/22/19 12:21 36.5 C 75 18 156/79 H 91 12/22/19 08:00 76 12/22/19 07:14 36.3 C L 77 19 177/82 H 94 12/22/19 04:05 36.6 C 83 20 156/72 H 92 Laboratory Results 12/22/19 12/22/19 12/21/19 Range/Units 11:18 07:30 20:04 POC Glucose 128 H 135 H 113 H (70-99) mg/dl 12/21/19 Range/Units 16:23 POC Glucose 122 H (70-99) mg/dl Medications Administered Current Inpatient Medications [facility] Stop: 01/17/20 08:59 Last Admin: 12/22/19 08:14 Dose: 81 mg Documented by: Atorvastatin Calcium (Lipitor) [facility] Stop: 01/17/20 09:59 Last Admin: 12/22/19 08:14 Dose: 80 mg Documented by: Carvedilol (Coreg) 6.25 mg PO BID [facility] Stop: 01/20/20 20:59 Last Admin: 12/22/19 08:14 Dose: 6.25 mg Documented by: Clopidogrel Bisulfate (Plavix) [facility] Stop: 01/17/20 08:59 Last Admin: 12/22/19 08:14 Dose: 75 mg Documented by: Dextrose (Dextrose 50%) 25 - 50 ml IV UD PRN; Protocol PRN Reason: Hypoglycemia Protocol Stop: 01/16/20 16:30 Glucagon (Glucagen) 1 mg SQ UD PRN; Protocol PRN Reason: Hypoglycemia Protocol Stop: 01/16/20 16:30 Glucose (Dex4 Glucose) 4 - 8 tabs PO UD PRN; Protocol PRN Reason: Hypoglycemia Protocol Stop: 01/16/20 16:30 Glucose (Glucose 40%) 15 - 30 gm PO UD PRN; Protocol PRN Reason: Hypoglycemia Protocol Stop: 01/16/20 16:30 Hydralazine HCl (Hydralazine Hcl) 5 mg IV Q6H PRN PRN Reason: hypertension Stop: 01/17/20 23:32 Last Admin: 12/21/19 03:05 Dose: 5 mg Documented by: Hydralazine HCl (Apresoline) 10 mg PO Q8 [facility] Stop: 01/19/20 13:59 Last Admin: 12/22/19 06:08 Dose: 10 mg Documented by: Sodium Chloride (Nss 1000ml) 1,000 mls @ 125 mls/hr IV .Q8H MEHRAN Stop: 01/19/20 12:29 Last Infusion: 12/21/19 09:30 Dose: Infused Documented by: Insulin Aspart (Novolog Flexpen) 0 units SC ACHS [facility]HR[facility] Stop: 01/16/20 16:30 Last Admin: 12/22/19 11:56 Dose: Not Given Documented by: Labetalol HCl (Normodyne) 10 mg IV Q6H PRN PRN Reason: hypertension Stop: 01/16/20 16:30 Last Admin: 12/17/19 18:04 Dose: 10 mg Documented by: Miscellaneous (Carbohydrates For Hypoglycemia) 15 - 30 gm PO UD PRN PRN Reason: Hypoglycemia Protocol Stop: 01/16/20 16:30 Miscellaneous Information (Pharmacist Discharge Med Rec Consult) 1 ea N/A UD PRN PRN Reason: Consult Stop: 01/16/20 16:30
[2019-12-22] MEDS ORDERED: STROKE PATIENT DISCHARGE STA (13:00)
--- NOTE | 2019-12-22 13:02 | Discharge Summary ---
Date of Service December 22, 2019 Admission HPI Per Admitting Provider This is an 79-year-old female who has significant past medical history of cerebrovascular disease, T2DM, HTN, HLD, PAD, carotid artery disease, hypothyroidism who presents to ED secondary to strokelike symptoms x3 to 4 days. is at bedside. Patient notes over the past 3 to 4 weeks increased difficulty in walking. She complains of feeling off balance. Over the past 3 to 4 days she also noticed increased and slurred speech. When she woke up this morning she knew what she wanted to say, but according to was slurred when coming up. denies facial droop, syncope, fall or extremity weakness. She further complains of increased right leg weakness. She admits to prior history of stroke 5 years ago when she was told she had a, "sensory stroke." At that time she had numbness and tingling to upper extremity playing piano. She had no residual deficit. She does take a full-strength aspirin daily but did not take this morning. She denies any recent illness, fever, chills, sweats, lightheadedness, dizziness, syncope, fall, chest pain, shortness breath, cough, nausea, vomiting, abdominal pain, change in bowel or urinary habits. She states she likes to garden but this has taken her increased time over the past several days due to feeling off balance. She admits to needing a cane or walker but does not use. Appetite has been stable. Patient is adamant about medical management only. She does not want aggressive treatment. In ED patient was significantly hypertensive with blood pressure 250/114. In ED she received hydralazine 10 mg IV with minimal improvement. 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 Severe stenosis noted in the bilateral MCAs. Head CT: No significant change compared to the prior study. No acute intracranial abnormality. Admission Exam Per Admitting Provider Constitutional: WD/WN, elderly, F, vitals as above, NAD, sitting up in bed, pleasant, answers questions appropriately, appears anxious Head: Normocephalic, Atraumatic Eyes: PERRL, conjunctivae normal, anicteric sclerae ENMT: external ear and nose normal, oropharynx normal Neck: trachea midline, no thyromegaly normal visual inspection Respiratory: normal respiratory effort, lungs clear to auscultation, no wheeze, rales, rhonchi. Normal insp/exp effort, no accessory muscle use Cardiovascular: RRR, harsh 3/6 RONEN noted RUSB with radiation, b/l venous stasis changes noted, +1 pedal pulse b/l Vessels: no JVD or carotid bruit Chest: normal inspection of chest Abdomen: normal bowel sounds, soft, nontender, no hepatosplenomegaly Musculoskeletal: no cyanosis or clubbing, extremities motor strength 5/5 , except LLE 4/5, good crop puller strength Skin: no rashes, warm and dry normal turgor Neurologic: PERRL, EOMI, accommodation nl, no face palsy, no dysarthria CN's II-XI intact bilaterally and moves all extremities Psychiatric: A+Ox3 but poor recall , euthymic affect Lymphatic: no cervical or axillary lymphadenopathy : deferred Principal Diagnosis Dysarthria, right sided weakness most likely due to brainstem infarction. Hypertensive emergency Discharge Exam Constitutional: WD/WN, elderly, F, in NAD, sitting up in bed, answers questions appropriately Head: Normocephalic, Atraumatic Eyes: PERRL, conjunctivae normal, anicteric sclerae ENMT: external ear and nose normal, oropharynx normal Neck: trachea midline, no thyromegaly normal visual inspection Respiratory: normal respiratory effort, lungs clear to auscultation, no wheeze, rales, rhonchi. Normal insp/exp effort, no accessory muscle use Cardiovascular: RRR, 3/6 RONEN noted at RUSB with radiation, b/l venous stasis changes noted, +1 pedal pulse b/l Vessels: no JVD or carotid bruit Chest: normal inspection of chest Abdomen: normal bowel sounds, soft, nontender Musculoskeletal: Significant weakness in right lower extremity and right upper extremity Skin: no rashes, warm and dry normal turgor, venous stasis changes LEs Neuro/psych: alert and oriented and answers questions appropriately, but slowly and speech is slurred (however seems little better today). raises eyebrows b/l, puffs cheeks, but smile is slightly asymmetric. Significant weakness in right lower extremity and right upper extremity. She can move LLE and LUE without difficulty. No sensory loss noted. Discharge Data Allergies Allergy/AdvReac Type Severity Reaction Status Date / Time ceftriaxone Allergy Intermediate RASH Verified 12/17/19 12:40 cephalexin Allergy Intermediate RASH Unverified 12/17/19 12:40 Sulfa (Sulfonamide Allergy Unknown Unknown Unverified 12/17/19 12:40 Antibiotics) Consultations 12/17/19 13:48 ED Decision to Admit Stat 12/17/19 16:31 Consult Case Management - Discharge Planning Routine Consult Neurology Routine Ordered Studies 12/17/19 12:01 CT angio head w con Stat IMPRESSION: 1. Severe multifocal stenoses within the intracranial vessels, as described above. No intraluminal thrombus identified. 2. 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 CT angio neck with con Stat IMPRESSION: 1. Moderate plaque formation throughout the carotid bifurcations. 2. 30% narrowing of the carotid bifurcations and proximal internal carotid arteries bilaterally. 3. Multifocal 50% narrowing of the left vertebral artery as described. CT head/brain wo con Stat Impression: No significant change compared to the prior study. No acute intracranial abnormality. 12/18/19 09:00 CT head/brain wo con DAILY Impression: Chronic change. No acute process. No change from the prior exam. 12/20/19 09:14 CT head/brain wo con Urgent Impression: No significant change compared to the prior study. No acute intracranial abnormality. Wedge-shaped hypodensity at the mid mercedes may represent artifact. This bears watching on future examinations to exclude the possibility of a subacute/chronic infarct. 12/21/19 10:00 FL video swallow Routine IMPRESSION: 1. Penetration without aspiration. 2. Please see the speech pathologist report for detailed findings and recommendations. Hospital Course (1) CVA (cerebral vascular accident): (2) Hypertensive emergency: This is an 79-year-old female who has significant past medical history of cerebrovascular disease, T2DM, HTN, HLD, PAD, carotid artery disease, hypothyroidism who presents to ED secondary to strokelike symptoms (slurred speech, RLE weakness) x3 to 4 days. In ED patient was significantly hypertensive with blood pressure 250/114. In ED she received hydralazine 10 mg IV with minimal improvement. 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 Severe stenosis noted in the bilateral MCAs. Head CT: No significant change compared to the prior study. No acute intracranial abnormality. Labetalol 20mg IV x 1 stat and q6h prn SBP > 220 DBP > 110 pt does not meet criteria for TPA wishes for medical management only Pt refusing MRI, repeated CT w/o contrast in a.m. - no change from prior CT noted, another CT head obtained on December 19, did not show significant change, shows a wedge shaped hypodensity at the mid mercedes, which may represent artifact. This bears watching on future examinations to exclude the possibility of a sub- acute/chronic infarct. Neurology recommends repeat CT head in 1 week after discharge DNR/DNI PT/ST/OT - recommend rehab 300mg ASA CT given on admission ASA 81mg daily and plavix 75mg, atorvastatin 80mg Neurology consulted - follow-up with neurology, Dr. Lehman or Dr. Rosen after discharge echocardiogram ordered (last 07/23 revealed EF 65%, mildly enlarged left atrium, mild AV stenosis, severely enlarged concentric left ventricle concerns for hypertrophic cardiomyopathy -has not been evaluated by cards as outpatient) Current echo shows no ASD, LV normal in size. Severe concentric LVH. LV wall motion is normal. EF 55 to 60%. Grade 1 diastolic dysfunction. Aortic valve sclerosis moderate, without significant aortic valve stenosis. No interatrial shunt, no ASD. Fasting lipid panel obtained LDL 248, HbA1c 7.3% Speech eval, currently on minced and moist diet, radiology swallow study obtained, does not show aspiration (3) Cerebral vascular disease: CTA head revealed Severe multifocal stenoses within the intracranial vessels, with severe stenosis to the b/l MCAs pt with overall poor nursing home prognosis given severity of stenosis with likely recurrent stroke like sx wishes for non aggressive measures, opts for med management Patient declined MRI on multiple occasions. ASA, add plavix and atorvastatin Neurology consulted (4) Diabetes: last a1c 7.5 06/27/19 hold metformin repeat a1c 7.3% novolog insulin sliding scale per protocol (5) HTN (hypertension): on coreg as outpt treat of htn emergency as above permissive HTN Per neurology, gradually decrease blood pressure Patient is currently on her home Coreg P.o. hydralazine started while inpatient, continue to monitor BP and titrate blood pressure medications as needed (6) Carotid artery disease: CTA neck: 1. Moderate plaque formation throughout the carotid bifurcations. 2. 30% narrowing of the carotid bifurcations and proximal internal carotid arteries bilaterally. 3. Multifocal 50% narrowing of the left vertebral artery as described. Pt on ASA, added plavix previously has been on statin in past - she is unsure why she stopped obtained fasting lipid panel, LDL 248 started atorvastatin 80mg (7) Hypothyroidism: continue levothyroxine (8) DVT prophylaxis: SCD/TEDs for now Disposition: [facility] Follow up: PCP Dr. Perez upon discharge and neurology (Dr. Lehman or Arely) Total Time Total Time Spent Total Time Spent (In Minutes): 40 Total Time Includes: Examination of the Patient, Discharge Planning, Medication Reconciliation and Communication With Other Providers Discharge Plan Discharge Items Patient Disposition: Transfer Inpatient Rehab Fac Reason For Visit: CVA,HTN EMERGENCY Discharge Diagnosis: Dysarthria, right sided weakness most likely due to brainstem infarction. Hypertensive emergency Activity: Per Instructions section Non-emergency contact: Primary Care Provider and Neurologist Call non-emergency contact if: you have any medication questions and your symptoms worsen Follow-up/Referrals: Shirley Perez, [Primary Care Provider] - Diet: Carb Consistent or DM2 and Heart Healthy Diet Comment: Minced and moist diet Addtl Attending Provider Instructions: Follow-up with primary care doctor within 1 week after [facility]. Follow-up with neurology in 2 to [address] Lehman or Dr. Rosen ([facility] neurology). Neurology recommends to gradually decrease blood pressure. Continue taking Coreg, small dose p.o. hydralazine was started while in the hospital. Addtl Software Security Consultant Provider Instructions: Risk Factors for Stroke: You can reduce your chances of stroke by working with your medical provider to adopt a healthy lifestyle. Some specific ways to lower your chance of stroke are: * If you are a smoker, now is the time to stop smoking cigarettes * If you are diabetic, improve the control of your blood sugars * Avoid excessive amounts of alcohol * Control high blood pressure * Lose weight if you are overweight * Be sure to lead an active lifestyle * Eat a healthy diet low in salt, cholesterol and fat You should know about other risk factors for stroke that you are unable to control. These include: * Age 55 years or older * Male gender * Certain racial groups: , or / * Family History of Stroke, Mini stroke or Heart Attack * Sickle Cell Disease Follow Up: It is important for you to keep your follow up appointments with your medical provider. Who to Call and When: Medical Emergencies: Call 911 immediately if you experience any of the following warning signs and symptoms of Stroke: * Sudden numbness or weakness of the face, arm or leg, especially on one side of the body * Sudden confusion, trouble speaking or understanding * Sudden trouble seeing in one or both eyes * Sudden trouble walking, dizziness, loss of balance or coordination * Sudden severe headache with no cause Do not delay calling 911 if you experience any warning signs or symptoms of a stroke. Delay in seeking medical attention may affect what treatments can be given to you. . Pending Studies at Discharge: No Stand-Alone Forms: My [facility] Skilled Items Patient informed of condition?: Yes DNR: Yes Discharge Level of Care: Acute rehab Communicable Disease: No Discharge Prognosis: Stable Lines: None Urinary Catheter: No Medications and DC Order Prescriptions: New aspirin 81 mg Tablet,Delayed Release (Dr/Ec) 81 mg PO QAM 30 Days Qty: 30 RF: 0 clopidogrel 75 mg Tablet 75 mg PO QAM 30 Days Qty: 30 RF: 0 atorvastatin 40 mg Tablet 80 mg PO QAM 30 Days Qty: 60 RF: 0 hydralazine 10 mg Tablet 10 mg PO BID 5 Days Qty: 10 RF: 0 Continued metformin 500 mg tablet 500 mg PO QDL RF: 0 carvedilol 6.25 mg tablet 6.25 mg PO QAM RF: 0 levothyroxine 137 mcg tablet 137 mcg PO DAILY RF: 0 Discontinued aspirin 325 mg tablet 325 mg PO QDL RF: 0 Discharge Orders: Discharge Order (Routine); Ordered 12/22/19 Ordered By: Wes Lynne Admission Data Admit Date/Time: 12/17/19 14:06 Attending Provider: Wes Lynne Admit Provider: Fernando Langston Primary Care Provider: Shirley Perez Other Providers: Fernando Langston ; Laith Lehman ; [facility] ; [facility] ; [facility]
[2019-12-22] MEDS ORDERED: HydrALAZINE 10 MG TAB PO SCH (21:00)
== END 2019-12-22 15:43 | DRG 65 ==
LOC: ED 11:45 → SUATTDRO 14:06 → 2S 14:06